=== PATIENT | male | born 1970 | race American Indian/Alaskan Native ===

== ENCOUNTER 2022-01-30 02:45 | Inpatient (IN) | payer SELFPAY ==
--- NOTE | 2022-01-30 03:00 | Emergency Department Report ---
ED Chest Pain HPI - General Chief Complaint: Chest Pain Stated Complaint: RT SIDE CHEST PAIN Time Seen by Provider: 01/30/22 02:54 Source: patient, EMS Mode of arrival: Ambulatory Limitations: No Limitations - History of Present Illness Initial Comments: 51-year-old male with a past medical history of COPD without home oxygen use presents to the hospital complaining of shortness of breath and chest pain since yesterday. Patient complains of right-sided chest pain described as something pulling. Pain is constant and worse with palpation. Patient also reports worsening shortness of breath not alleviated with home nebulizer treatment. Patient complains of coughing up bloody sputum without fever, calf tenderness, leg edema, history of PE/DVT. Patient does continue to smoke cigarettes. Patient is unvaccinated for COVID - Related Data Allergies Allergy/AdvReac Type Severity Reaction Status Date / Time No Known Allergies Allergy Unverified 01/30/22 03:19 Heart Score - HEART Score History: Slightly suspicious EKG: Normal Age: 45-65 Risk factors: 1-2 risk factors Troponin: < normal limit HEART Score: 2 - EKG Read Time Time EKG Completed: 03:05 EKG Read Time: 03:07 ED Review of Systems ROS: Stated complaint: RT SIDE CHEST PAIN Other details as noted in HPI Comment: All other systems reviewed and negative ED Physical Exam - General Limitations: No Limitations - Other Other exam information: General: No acute distress Head: Atraumatic Eyes: normal appearance ENT: Moist mucous membranes Neck: Normal appearance, no midline tenderness Chest: Clear to auscultation bilaterally, tachypnea, no rales or wheeze CV: Regular rate and rhythm Abdomen: Soft, normal bowel sounds, nontender, nondistended, no rebound or guarding Back: Normal inspection Extremity: Normal inspection, full range of motion, no calf tenderness or leg edema Neuro: Alert O x 3, no facial asymmetry, speech clear, no gross motor sensory deficit Psych: Appropriate behavior Skin: No rash ED Course Vital Signs 01/30/22 01/30/22 01/30/22 03:26 03:33 07:23 Temperature 99.3 F Pulse Rate 91 H Pulse Rate [ 88 Anterior Bilateral Throughout] Respiratory 20 Rate Respiratory 20 Rate [Anterior Bilateral Throughout] Blood Pressure Blood Pressure 122/71 [Left] O2 Sat by Pulse 94 97 Oximetry 01/30/22 01/30/22 01/30/22 07:31 07:45 08:01 Temperature Pulse Rate Pulse Rate [ Anterior Bilateral Throughout] Respiratory Rate Respiratory Rate [Anterior Bilateral Throughout] Blood Pressure 108/77 108/77 124/88 Blood Pressure [Left] O2 Sat by Pulse 96 97 95 Oximetry 01/30/22 01/30/22 01/30/22 08:15 08:31 08:45 Temperature Pulse Rate Pulse Rate [ Anterior Bilateral Throughout] Respiratory Rate Respiratory Rate [Anterior Bilateral Throughout] Blood Pressure 124/88 113/70 113/70 Blood Pressure [Left] O2 Sat by Pulse 98 100 92 Oximetry 01/30/22 01/30/22 01/30/22 09:01 09:15 09:31 Temperature Pulse Rate Pulse Rate [ Anterior Bilateral Throughout] Respiratory Rate Respiratory Rate [Anterior Bilateral Throughout] Blood Pressure 100/77 100/77 123/89 Blood Pressure [Left] O2 Sat by Pulse 95 96 95 Oximetry 01/30/22 01/30/22 01/30/22 09:45 10:01 10:15 Temperature Pulse Rate Pulse Rate [ Anterior Bilateral Throughout] Respiratory Rate Respiratory Rate [Anterior Bilateral Throughout] Blood Pressure 123/89 131/82 131/82 Blood Pressure [Left] O2 Sat by Pulse 96 98 97 Oximetry 01/30/22 01/30/22 01/30/22 10:31 10:45 11:01 Temperature Pulse Rate 88 89 Pulse Rate [ Anterior Bilateral Throughout] Respiratory 29 H 26 H Rate Respiratory Rate [Anterior Bilateral Throughout] Blood Pressure 121/63 121/63 117/82 Blood Pressure [Left] O2 Sat by Pulse 98 95 99 Oximetry 01/30/22 01/30/22 01/30/22 11:15 11:31 11:45 Temperature Pulse Rate 93 H 89 90 Pulse Rate [ Anterior Bilateral Throughout] Respiratory 17 28 H 30 H Rate Respiratory Rate [Anterior Bilateral Throughout] Blood Pressure 117/82 127/80 127/80 Blood Pressure [Left] O2 Sat by Pulse 97 97 98 Oximetry 01/30/22 01/30/22 01/30/22 12:01 12:15 12:31 Temperature Pulse Rate 93 H 93 H 91 H Pulse Rate [ Anterior Bilateral Throughout] Respiratory 15 36 H 24 Rate Respiratory Rate [Anterior Bilateral Throughout] Blood Pressure 127/80 127/80 123/73 Blood Pressure [Left] O2 Sat by Pulse 96 97 95 Oximetry 01/30/22 01/30/22 01/30/22 12:45 13:01 13:15 Temperature Pulse Rate 87 91 H 92 H Pulse Rate [ Anterior Bilateral Throughout] Respiratory 16 12 25 H Rate Respiratory Rate [Anterior Bilateral Throughout] Blood Pressure 123/73 114/78 114/78 Blood Pressure [Left] O2 Sat by Pulse 97 98 96 Oximetry 01/30/22 01/30/22 01/30/22 13:31 13:45 14:01 Temperature Pulse Rate 88 88 93 H Pulse Rate [ Anterior Bilateral Throughout] Respiratory 15 21 22 Rate Respiratory Rate [Anterior Bilateral Throughout] Blood Pressure 127/77 127/77 121/64 Blood Pressure [Left] O2 Sat by Pulse 97 97 96 Oximetry 01/30/22 01/30/22 01/30/22 14:15 14:31 14:45 Temperature Pulse Rate 91 H 90 90 Pulse Rate [ Anterior Bilateral Throughout] Respiratory 25 H 19 30 H Rate Respiratory Rate [Anterior Bilateral Throughout] Blood Pressure 121/64 111/74 111/74 Blood Pressure [Left] O2 Sat by Pulse 96 98 97 Oximetry 01/30/22 01/30/22 01/30/22 15:01 15:15 15:31 Temperature Pulse Rate 88 93 H 91 H Pulse Rate [ Anterior Bilateral Throughout] Respiratory 34 H 29 H 36 H Rate Respiratory Rate [Anterior Bilateral Throughout] Blood Pressure 124/75 124/75 127/79 Blood Pressure [Left] O2 Sat by Pulse 94 97 95 Oximetry 01/30/22 01/30/22 01/30/22 15:45 16:01 16:15 Temperature Pulse Rate 92 H 92 H 91 H Pulse Rate [ Anterior Bilateral Throughout] Respiratory 22 25 H 36 H Rate Respiratory Rate [Anterior Bilateral Throughout] Blood Pressure 127/79 123/77 123/77 Blood Pressure [Left] O2 Sat by Pulse 97 97 98 Oximetry 01/30/22 01/30/22 01/30/22 16:31 16:46 17:01 Temperature Pulse Rate 91 H 92 H 88 Pulse Rate [ Anterior Bilateral Throughout] Respiratory 14 20 18 Rate Respiratory Rate [Anterior Bilateral Throughout] Blood Pressure 129/82 129/82 Blood Pressure [Left] O2 Sat by Pulse 95 95 96 Oximetry 01/30/22 01/30/22 01/30/22 17:15 17:31 17:45 Temperature Pulse Rate 88 97 H 89 Pulse Rate [ Anterior Bilateral Throughout] Respiratory 21 26 H 19 Rate Respiratory Rate [Anterior Bilateral Throughout] Blood Pressure 129/82 123/72 123/72 Blood Pressure [Left] O2 Sat by Pulse 97 96 98 Oximetry 01/30/22 01/30/22 01/30/22 18:01 18:15 18:31 Temperature Pulse Rate 88 100 H 91 H Pulse Rate [ Anterior Bilateral Throughout] Respiratory 26 H 14 25 H Rate Respiratory Rate [Anterior Bilateral Throughout] Blood Pressure 108/76 108/76 122/68 Blood Pressure [Left] O2 Sat by Pulse 95 97 97 Oximetry 01/30/22 01/30/22 01/30/22 18:45 19:01 19:15 Temperature 98.6 F Pulse Rate 89 92 H 90 Pulse Rate [ Anterior Bilateral Throughout] Respiratory 27 H 20 26 H Rate Respiratory Rate [Anterior Bilateral Throughout] Blood Pressure 122/68 119/95 119/95 Blood Pressure [Left] O2 Sat by Pulse 95 95 97 Oximetry 01/30/22 01/30/22 01/30/22 19:31 19:45 20:01 Temperature Pulse Rate 90 92 H 93 H Pulse Rate [ Anterior Bilateral Throughout] Respiratory 17 17 21 Rate Respiratory Rate [Anterior Bilateral Throughout] Blood Pressure 116/71 116/71 111/78 Blood Pressure [Left] O2 Sat by Pulse 95 96 97 Oximetry 01/30/22 01/30/22 01/30/22 20:15 20:31 20:45 Temperature Pulse Rate 96 H 94 H 95 H Pulse Rate [ Anterior Bilateral Throughout] Respiratory 25 H 20 21 Rate Respiratory Rate [Anterior Bilateral Throughout] Blood Pressure 111/78 111/81 111/81 Blood Pressure [Left] O2 Sat by Pulse 92 97 96 Oximetry - Reevaluation(s) Reevaluation #1: 01/30/22 03:20 room air sat 90%, pt placed on 2L 02 and duo neb ordered while awaiting results - Consultations Consultation #1: 01/30/22 05:55 DR Richter (vascular surgeon) called, awaiting call back 01/30/22 06:15 Case was D/w Dr Richter, will consult MELVIN score - Melvin Score Age > 65: (0) No Aspirin use within the Past 7 Days: (0) No 3 or more CAD Risk Factors: (0) No 2 or more Angina events in past 24 hrs: (0) No Known CAD with more than 50% Stenosis: (0) No Elevated Cardiac Markers: (0) No ST Deviation Greater than 0.5mm: (0) No MELVIN Score: 0 ED Medical Decision Making - Lab Data Result diagrams: 01/30/22 03:24 01/30/22 03:24 Lab Results 01/30/22 01/30/22 01/30/22 Range/Units 03:24 03:24 03:24 WBC 11.1 H (4.5-11.0) K/mm3 RBC 4.96 (3.65-5.03) M/mm3 Hgb 14.6 (11.8-15.2) gm/dl Hct 44.6 (35.5-45.6) % MCV 90 (84-94) fl MCH 30 (28-32) pg MCHC 33 (32-34) % RDW 14.5 (13.2-15.2) % Plt Count 210 (140-440) K/mm3 Lymph % (Auto) 11.3 L (13.4-35.0) % [place] % (Auto) 9.7 H (0.0-7.3) % Eos % (Auto) 1.7 (0.0-4.3) % Baso % (Auto) 0.5 (0.0-1.8) % Lymph # (Auto) 1.3 (1.2-5.4) K/mm3 [place] # (Auto) 1.1 H (0.0-0.8) K/mm3 Eos # (Auto) 0.2 (0.0-0.4) K/mm3 Baso # (Auto) 0.1 (0.0-0.1) K/mm3 Seg Neutrophils % 76.8 H (40.0-70.0) % Seg Neutrophils # 8.5 H (1.8-7.7) K/mm3 PT 12.9 (12.2-14.9) Sec. INR 0.88 (0.87-1.13) APTT 26.1 (24.2-36.6) Sec. D-Dimer 2958.59 H (0-234) ng/mlDDU Sodium 139 (137-145) mmol/L Potassium 4.4 (3.6-5.0) mmol/L Chloride 102.0 (98-107) mmol/L Carbon Dioxide 25 (22-30) mmol/L Anion Gap 16 mmol/L BUN 10 (9-20) mg/dL Creatinine 0.8 (0.8-1.3) mg/dL Estimated GFR > 60 ml/min BUN/Creatinine Ratio 13 % Glucose 112 H (75-100) mg/dL Calcium 8.6 (8.4-10.2) mg/dL Total Bilirubin 0.20 (0.1-1.2) mg/dL AST 14 (5-40) units/L ALT 12 (7-56) units/L Alkaline Phosphatase 91 (35-129) units/L Troponin T < 0.010 (0.00-0.029) ng/mL NT-Pro-B Natriuret Pep 550.4 (0-900) pg/mL Total Protein 6.6 (6.3-8.2) g/dL Albumin 3.6 L (3.9-5) g/dL Albumin/Globulin Ratio 1.2 % - EKG Data -: EKG Interpreted by Tx EKG shows normal: sinus rhythm, ST-T waves (no stemi) Rate: normal - EKG Data When compared to previous EKG there are: previous EKG unavailable - Radiology Data Radiology results: report reviewed CHEST 1 VIEW INDICATION / CLINICAL INFORMATION: sob, cough, right sided cp. COMPARISON: None available. FINDINGS: SUPPORT DEVICES: None. HEART / MEDIASTINUM: No significant abnormality. LUNGS / PLEURA: Confluent airspace opacities overlying the right hemidiaphragm are compatible with infectious process. Lungs otherwise clear. BONES: No significant osseous abnormality. ADDITIONAL FINDINGS: No significant additional findings. IMPRESSION: 1. Infectious process right lung base is suggested. CTA CHEST WITH CONTRAST INDICATION / CLINICAL INFORMATION: hypoxia, infiltrate, elevated ddimer. TECHNIQUE: Axial CT images were obtained through the chest after injection of IV contrast. 3 plane MIP and/or 3D reconstructions were produced. All CT scans at this location are performed using CT dose reduction for ALARA by means of automated exposure control. COMPARISON: None available. FINDINGS: VASCULAR FINDINGS: PULMONARY ARTERY: Newly occlusive to occlusive pulmonary artery embolus is present within the bifurcation of the right main pulmonary artery with embolus extending within upper and lower lobe lobar branches as well as right middle lobe lobar branches. The right middle lobe branch embolus is occlusive. Additional segmental branch emboli are present within the left lower lobe.. THORACIC AORTA: No significant abnormality. CORONARY ARTERY CALCIFICATION: Present -- Mild. NONVASCULAR FINDINGS: LOWER NECK: Soft tissues and musculature of the lower neck demonstrate no significant abnormality. The thyroid demonstrates no significant abnormality. HEART: Mild prominence of the right ventricle is present. No reflux of contrast within the inferior vena cava. MEDIASTINUM / CARIDAD: No significant abnormality. ESOPHAGUS: No significant abnormality. LYMPH NODES: No adenopathy within the axilla, mediastinum, or caridad. LUNGS: Moderate paraseptal emphysema is present. Within the right middle and lower lobes areas of peripheral airspace attenuation groundglass attenuation present with superimposed subsegmental atelectasis of the right lower lobe. Differential considerations include infarction as well as infection. PLEURA: No pleural effusion. No pneumothorax. THORACIC SOFT TISSUES: No significant abnormality of the chest wall or upper thoracic musculature. BONES: No significant skeletal abnormalities. ADDITIONAL CHEST FINDINGS: None. UPPER ABDOMEN: No significant abnormality. IMPRESSION: 1. Extensive bilateral pulmonary artery emboli the largest vessel of involvement is bifurcation of the right main pulmonary artery. Occlusive thrombus extends within the right middle lobe lobar branch with additional nearly occlusive emboli within the right upper and right lower lobe lobar branches. Left lower lobe segmental branches have additional thrombus present. 2. Right ventricle is minimally enlarged, mild right ventricular strain is suggested. - Medical Decision Making 51-year-old male presents to the hospital right-sided chest pain, shortness of breath, hypoxia. X-ray reveals findings of a right-sided infiltrate. Patient treated for community-acquired pneumonia. He is unvaccinated for COVID with elevated D-dimer. No signs of severe sepsis or septic shock. O2 saturation improved with supplemental nasal cannula oxygen. CT angiogram shows extensive pulmonary emboli with possible right heart strain. Vascular surgery consult requested. Heparin drip initiated. patient will require admission to the hospital for further treatment. COVID test pending. DR Miner informed of admission Critical Care Time: Yes Critical care time in (mins) excluding proc time.: 40 Critical care attestation.: If time is entered above; I have spent that time in minutes in the direct care of this critically ill patient, excluding procedure time. Critical Care Time: 40 Minutes of critical care time excluding procedures were used in the care of the patient. I came immediately to the bedside upon patient's arrival. I obtained history from EMS at the bedside. I discussed treatment plan with the nursing team members. Patient required multiple interventions and reassessments. Spoke with hospitalist and consultants for collaborative care ED Disposition Clinical Impression: Acute respiratory failure with hypoxemia, Pneumonia, Pulmonary emboli Disposition: ADMITTED INPATIENT Is pt being admited?: Yes Condition: Stable Time of Disposition: 05:53 (DR Miner/hospitalist)
[2022-01-30] MEDS ORDERED: ONDANSETRON 4 MG/2 ML INJ IV ONE (03:19)
[2022-01-30] MEDS ORDERED: MORPHINE 4 MG/1 ML INJ IV ONE ×2 (03:19→04:45)
[2022-01-30] MEDS ORDERED: IPRATROPIUM/ALBUTEROL SULFATE 3 ML AMPUL.NEB IH ONE (03:20)
--- NOTE | 2022-01-30 03:29 | XRay Report ---
CHEST 1 VIEW INDICATION / CLINICAL INFORMATION: sob, cough, right sided cp. COMPARISON: None available. FINDINGS: SUPPORT DEVICES: None. HEART / MEDIASTINUM: No significant abnormality. LUNGS / PLEURA: Confluent airspace opacities overlying the right hemidiaphragm are compatible with in fectious process. Lungs otherwise clear. BONES: No significant osseous abnormality. ADDITIONAL FINDINGS: No significant additional findings. IMPRESSION: 1. Infectious process right lung base is suggested. Signer Name: Piero Bolton II, MD Signed: 01/30/2022 3:24 AM Workstation Name: [id number]
[2022-01-30] MEDS ORDERED: AZITHROMYCIN/NS 500 MG/250 ML 500 MG/250 ML BAG IV ONE (03:42)
[2022-01-30] MEDS ORDERED: cefTRIAXone/NS 2 GM/100 ML 2 GM/100 ML BAG IV ONE (03:42)
[2022-01-30 03:54] LABS: Basophils # (Auto) 0.1 K/mm3 (0.0-0.1); Basophils % (Auto) 0.5 % (0.0-1.8); Eosinophils # (Auto) 0.2 K/mm3 (0.0-0.4); Eosinophils % (Auto) 1.7 % (0.0-4.3); Hematocrit 44.6 % (35.5-45.6); Hemoglobin 14.6 gm/dl (11.8-15.2); Lymphocytes # (Auto) 1.3 K/mm3 (1.2-5.4); Lymphocytes % (Auto) 11.3 % (13.4-35.0); Mean Corpuscular HGB Conc 33 % (32-34); Mean Corpuscular Volume 90 fl (84-94); Monocytes # (Auto) 1.1 K/mm3 (0.0-0.8); Monocytes % (Auto) 9.7 % (0.0-7.3); Platelet Count 210 K/mm3 (140-440); Red Blood Count 4.96 M/mm3 (3.65-5.03); Red Cell Distribution Width 14.5 % (13.2-15.2)
[2022-01-30 03:58] LABS: Alanine Aminotransferase 12 units/L (7-56); Albumin 3.6 g/dL (3.9-5); BUN/Creatinine Ratio 13; Blood Urea Nitrogen 10 mg/dL (9-20); Calcium 8.6 mg/dL (8.4-10.2); Hemolysis Index 7
[2022-01-30 04:13] LABS: INR 0.88 (0.87-1.13)
[2022-01-30 04:14] LABS: Partial Thromboplastin Time 26.1 Sec. (24.2-36.6)
[2022-01-30] MEDS ORDERED: HEPARIN 10,000 UNITS/10 ML VIAL IV PRN (05:39)
[2022-01-30] MEDS ORDERED: HEPARIN 10,000 UNITS/10 ML VIAL IV ONE (05:39)
--- NOTE | 2022-01-30 05:48 | Cat Scan Report ---
CTA CHEST WITH CONTRAST INDICATION / CLINICAL INFORMATION: hypoxia, infiltrate, elevated ddimer. TECHNIQUE: Axial CT images were obtained through the chest after injection of IV contrast. 3 plane DE P and/or 3D reconstructions were produced. All CT scans at this location are performed using CT dose reduction for ALARA by means of automated exposure control. COMPARISON: None available. FINDINGS: VASCULAR FINDINGS: PULMONARY ARTERY: Newly occlusive to occlusive pulmonary artery embolus is present within the bifurca tion of the right main pulmonary artery with embolus extending within upper and lower lobe lobar bran ches as well as right middle lobe lobar branches. The right middle lobe branch embolus is occlusive. Additional segmental branch emboli are present within the left lower lobe.. THORACIC AORTA: No significant abnormality. CORONARY ARTERY CALCIFICATION: Present -- Mild. NONVASCULAR FINDINGS: LOWER NECK: Soft tissues and musculature of the lower neck demonstrate no significant abnormality. Th e thyroid demonstrates no significant abnormality. HEART: Mild prominence of the right ventricle is present. No reflux of contrast within the inferior v brijesh cava. MEDIASTINUM / CARIDAD: No significant abnormality. ESOPHAGUS: No significant abnormality. LYMPH NODES: No adenopathy within the axilla, mediastinum, or caridad. LUNGS: Moderate paraseptal emphysema is present. Within the right middle and lower lobes areas of per ipheral airspace attenuation groundglass attenuation present with superimposed subsegmental atelectas is of the right lower lobe. Differential considerations include infarction as well as infection. PLEURA: No pleural effusion. No pneumothorax. THORACIC SOFT TISSUES: No significant abnormality of the chest wall or upper thoracic musculature. BONES: No significant skeletal abnormalities. ADDITIONAL CHEST FINDINGS: None. UPPER ABDOMEN: No significant abnormality. IMPRESSION: 1. Extensive bilateral pulmonary artery emboli the largest vessel of involvement is bifurcation of th e right main pulmonary artery. Occlusive thrombus extends within the right middle lobe lobar branch w ith additional nearly occlusive emboli within the right upper and right lower lobe lobar branches. Le ft lower lobe segmental branches have additional thrombus present. 2. Right ventricle is minimally enlarged, mild right ventricular strain is suggested. CRITICAL RESULT Time of Discovery (ALUMNI RELATIONS COORDINATOR/CDT): 0430 hours Time of Communication (ALUMNI RELATIONS COORDINATOR/CDT): 0436 hours Licensed Practitioner Receiving Report: Dr. Olmedo Read-Back Performed: Yes. Signer Name: Piero Bolton II, MD Signed: 01/30/2022 5:44 AM Workstation Name: [id number]
[2022-01-30] MEDS ORDERED: fentaNYL 100 MCG/2 ML INJ IV ONE ×3 (07:50→18:30)
--- NOTE | 2022-01-30 07:55 | Event Note ---
Date: 01/30/22 Pt is to be held in the ED due to the hospitalized been caped/maxed out on their patient load at this point. I received a call from one of the hospitalist that no new admission will be accepted by them until around 11 AM when the morning physician arrived. So this patient will continued to be managed in the ED until rooms become available. I was asked by the bedside nurse for pain medication and fentanyl 50 mcg given considering very soft systolic blood pressure.
[2022-01-30] MEDS: HEPARIN/ 0.45% NACL DRIP 25,000 UNIT/500 ML BAG IV SCH (07:56)
--- NOTE | 2022-01-30 09:40 | Consultation ---
History of Present Illness - Reason for Consult Consult date: 01/30/22 Pulmonary embolism Requesting physician: KENDALL RG - History of Present Illness 51-year-old male with a past medical history of COPD without home oxygen use presents to the hospital complaining of shortness of breath and chest pain since yesterday. Patient complains of right-sided chest pain described as something pulling. Pain is constant and worse with palpation. Patient also reports wo rsening shortness of breath not alleviated with home nebulizer treatment. Patient complains of coughing up bloody sputum without fever, calf tenderness, leg edema, history of PE/DVT. Patient does continue to smoke cigarettes. Patient is unvaccinated for COVID. Vascular consulted for pulmonary embolism. Pulmonary artery CT angiogram demonstrates right distal main pulmonary embolism with extension into the right lobar and segmental branches. In addition there are segmental pulmonary emboli in the left lower lobe. Right ventricle the left ventricle ratio is 1.44. BNP is mildly increased. Troponin negative. There are multiple wedge-shaped opacities in the right lung which may represent infarction or infection. COVID being ruled out. Patient is very symptomatic with significant shortness of breath on 5 L of nasal cannula with near constant right chest pain. ROS: Stated complaint: RT SIDE CHEST PAIN Other details as noted in HPI Comment: All other systems reviewed and negative Past History Past Medical History: COPD Past Surgical History: No surgical history Social history: smoking Family history: no significant family history Medications and Allergies Allergies Allergy/AdvReac Type Severity Reaction Status Date / Time No Known Allergies Allergy Unverified 01/30/22 03:19 Active Meds: Active Medications Heparin Sodium (Porcine) (Heparin 10,000 Units/10 Ml Vial) 2,900 unit 40 unit/kg (2900 unit) IV Q6H PRN PRN Reason: Anti-Xa Assay < 0.1 units/ml Heparin Sodium/Sodium Chloride (Heparin/ 0.45% Nacl-25,000 Unit/500 Ml) 25,000 unit in 500 mls @ 21 mls/hr IV TITR ERICK; Protocol Last Admin: 01/30/22 07:56 Dose: 1,050 units/hr, 21 mls/hr Exam - Constitutional Vitals: Temp Pulse Resp BP Pulse Ox 99.3 F 88 20 108/77 97 01/30/22 03:26 01/30/22 03:33 01/30/22 03:33 01/30/22 07:45 01/30/22 07:45 General appearance: Present: mild distress (Shortness of breath at rest) - EENT Eyes: Present: EOM intact ENT: hearing intact - Respiratory Respiratory effort: labored (Tachypnea) - Cardiovascular Rhythm: regular - Extremities Extremities: normal temperature, normal color - Abdominal General gastrointestinal: Present: soft, non-tender - Psychiatric Psychiatric: appropriate mood/affect, cooperative Results - Labs CBC & Chem 7: 01/30/22 03:24 01/30/22 03:24 Labs: Abnormal lab results 01/30/22 01/30/22 01/30/22 Range/Units 03:24 03:24 03:24 WBC 11.1 H (4.5-11.0) K/mm3 Lymph % (Auto) 11.3 L (13.4-35.0) % [place] % (Auto) 9.7 H (0.0-7.3) % [place] # (Auto) 1.1 H (0.0-0.8) K/mm3 Seg Neutrophils % 76.8 H (40.0-70.0) % Seg Neutrophils # 8.5 H (1.8-7.7) K/mm3 D-Dimer 2958.59 H (0-234) ng/mlDDU Glucose 112 H (75-100) mg/dL Albumin 3.6 L (3.9-5) g/dL Assessment and Plan 51-year-old male with COPD who was admitted for right chest pain and shortness of breath with submassive pulmonary embolism. Patient has submassive pulmonary embolism with intermediate high risk stratification. Discussed thrombectomy with patient and thrombolysis. Unfortunately, the patient cannot lay down flat due to right-sided chest pain. This was discussed with patient and he is adamant that he cannot lay flat for procedure. Therefore, he could not undergo thrombolysis or thrombectomy at this time. Once chest pain has improved enough so that the patient can lay flat for prolonged period, then he can be reconsidered for endovascular therapy. This was discussed in depth with the patient who understands. Risks, benefits, and alternatives were discussed with the patient. Continue heparin drip for now.
--- NOTE | 2022-01-30 10:07 | Electrocardiograph Report ---
[facility] Test Date: 2022-01-30 Test Time: 03:05:51 Pat Name: KAREN LAL Department: Room: Gender: M Administrative Services Assistant: CHERYL : 1970 Requested By: KENDALL RG Order Number: [id number] Reading MD: Simone Robertson Measurements Intervals [place] Rate: 87 P: 50 VT: 145 QRS: -29 QRSD: 90 T: 23 QT: 388 QTc: 468 Interpretive Statements Sinus rhythm Probable left atrial enlargement Probable left ventricular hypertrophy Inferior infarct, old No previous ECG available for comparison Electronically Signed On 01-30-2022 10:07:03 EDT by Simone Robertson
[2022-01-30 11:02] LABS: Amphetamine Screen,Urine Negative; Benzodiazepines Screen,Urine Negative; Methadone Screen,Urine Negative
[2022-01-30 11:33] LABS: Cannabinoid Screen,Urine Positive; Cocaine Screen,Urine Positive; Opiate Screen,Urine Positive
[2022-01-30] MEDS ORDERED: ONDANSETRON 4 MG/2 ML INJ IV PRN (12:52)
[2022-01-30] MEDS ORDERED: ACETAMINOPHEN 325 MG TAB PO PRN (12:52)
[2022-01-30] MEDS ORDERED: oxyCODONE /ACETAMINOPHEN 5-325MG TAB PO PRN (12:52)
--- NOTE | 2022-01-30 13:09 | History and Physical Report ---
History of Present Illness History of present illness: 51-year-old gentleman with past medical history of COPD not on home O2 presenting to our facility with complaint of right-sided chest pain and shortness of breath. Symptomology started approximately 3 days ago with right- sided chest pain which he rates as a 10 out of 10 and progressed to severe shortness of breath. Patient denied any fevers or chills. He is not vaccinated for COVID. He denied any recent travel, prolonged immobilization, surgeries, personal history of cancers. He denied any prior history of DVT or PE. He denies any prior history of blood clotting disorders. Initial CTA chest demonstrates submassive right-sided pulmonary embolism. Patient very uncomfortable on my encounter. Requiring 4 - 5 L/min nasal cannula oxygen on my encounter. Vital signs otherwise stable. 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 , lives with Could not remember PCP name Past History Past Medical History: COPD Past Surgical History: No surgical history Social history: smoking Family history: no significant family history Medications and Allergies Allergies Allergy/AdvReac Type Severity Reaction Status Date / Time No Known Allergies Allergy Unverified 01/30/22 03:19 Active Meds: Active Medications Acetaminophen (Acetaminophen 325 Mg Tab) 650 mg PO Q4H PRN PRN Reason: Pain MILD(1-3)/Fever >100.5/GALAVIZ Heparin Sodium (Porcine) (Heparin 10,000 Units/10 Ml Vial) 2,900 unit 40 unit/kg (2900 unit) IV Q6H PRN PRN Reason: Anti-Xa Assay < 0.1 units/ml Hydromorphone HCl (Hydromorphone 0.5 Mg/0.5 Ml Inj) 0.5 mg IV Q3H PRN PRN Reason: Pain , Severe (7-10) Heparin Sodium/Sodium Chloride (Heparin/ 0.45% Nacl-25,000 Unit/500 Ml) 25,000 unit in 500 mls @ 21 mls/hr IV TITR ERICK; Protocol Last Admin: 01/30/22 07:56 Dose: 1,050 units/hr, 21 mls/hr Ondansetron HCl (Ondansetron 4 Mg/2 Ml Inj) 4 mg IV Q8H PRN PRN Reason: Nausea And Vomiting Oxycodone/Acetaminophen (Oxycodone /Acetaminophen 5-325mg Tab) 1 tab PO Q6H PRN PRN Reason: Pain, Moderate (4-6) Sodium Chloride (Sodium Chloride 0.9% 10 Ml Flush Syringe) 10 ml IV BID ERICK Sodium Chloride (Sodium Chloride 0.9% 10 Ml Flush Syringe) 10 ml IV PRN PRN PRN Reason: LINE FLUSH Exam - Physical Exam Narrative exam: Physical Exam: VITAL SIGNS: Reviewed. GENERAL: The patient appears normally developed, Vital signs as documented. On 4 to 5 L/min nasal cannula. Mild distress HEAD: No signs of head trauma. EYES: Pupils are equal. Extraocular motions intact. EARS: Hearing grossly intact. MOUTH: Oropharynx is normal. NECK: No adenopathy, no JVD. CHEST: Chest with clear breath sounds bilaterally. No wheezes, rales, or rhonchi. CARDIAC: Regular rate and rhythm. S1 and S2, without murmurs, gallops, or rubs. VASCULAR: No Edema. Peripheral pulses normal and equal in all extremities. ABDOMEN: Soft, non tender and non distended. No rebound or guarding, and no masses palpated. Bowel Sounds normal. MUSCULOSKELETAL: Good range of motion of all major joints. Extremities without clubbing, cyanosis or edema. NEUROLOGIC EXAM: Alert and oriented x 4. no focal sensory or strength deficits. PSYCHIATRIC: Mood normal. SKIN: detail exam as documented in skin assessment - Constitutional Vitals: Temp Pulse Resp BP Pulse Ox 99.3 F 91 H 24 123/73 95 01/30/22 03:26 01/30/22 12:31 01/30/22 12:31 01/30/22 12:31 01/30/22 12:31 HEART Score - HEART Score Troponin: Troponin T < 0.010 ng/mL (0.00-0.029) 01/30/22 03:24 Results - Labs CBC & Chem 7: 01/30/22 03:24 01/30/22 03:24 Labs: Laboratory Last Values WBC 11.1 K/mm3 (4.5-11.0) H 01/30/22 03:24 RBC 4.96 M/mm3 (3.65-5.03) 01/30/22 03:24 Hgb 14.6 gm/dl (11.8-15.2) 01/30/22 03:24 Hct 44.6 % (35.5-45.6) 01/30/22 03:24 MCV 90 fl (84-94) 01/30/22 03:24 MCH 30 pg (28-32) 01/30/22 03:24 MCHC 33 % (32-34) 01/30/22 03:24 RDW 14.5 % (13.2-15.2) 01/30/22 03:24 Plt Count 210 K/mm3 (140-440) 01/30/22 03:24 Lymph % (Auto) 11.3 % (13.4-35.0) L 01/30/22 03:24 [place] % (Auto) 9.7 % (0.0-7.3) H 01/30/22 03:24 Eos % (Auto) 1.7 % (0.0-4.3) 01/30/22 03:24 Baso % (Auto) 0.5 % (0.0-1.8) 01/30/22 03:24 Lymph # (Auto) 1.3 K/mm3 (1.2-5.4) 01/30/22 03:24 [place] # (Auto) 1.1 K/mm3 (0.0-0.8) H 01/30/22 03:24 Eos # (Auto) 0.2 K/mm3 (0.0-0.4) 01/30/22 03:24 Baso # (Auto) 0.1 K/mm3 (0.0-0.1) 01/30/22 03:24 Seg Neutrophils % 76.8 % (40.0-70.0) H 01/30/22 03:24 Seg Neutrophils # 8.5 K/mm3 (1.8-7.7) H 01/30/22 03:24 PT 12.9 Sec. (12.2-14.9) 01/30/22 03:24 INR 0.88 (0.87-1.13) 01/30/22 03:24 APTT 26.1 Sec. (24.2-36.6) 01/30/22 03:24 D-Dimer 2958.59 ng/mlDDU (0-234) H 01/30/22 03:24 Sodium 139 mmol/L (137-145) 01/30/22 03:24 Potassium 4.4 mmol/L (3.6-5.0) 01/30/22 03:24 Chloride 102.0 mmol/L (98-107) 01/30/22 03:24 Carbon Dioxide 25 mmol/L (22-30) 01/30/22 03:24 Anion Gap 16 mmol/L 01/30/22 03:24 BUN 10 mg/dL (9-20) 01/30/22 03:24 Creatinine 0.8 mg/dL (0.8-1.3) 01/30/22 03:24 Estimated GFR > 60 ml/min 01/30/22 03:24 BUN/Creatinine Ratio 13 % 01/30/22 03:24 Glucose 112 mg/dL (75-100) H 01/30/22 03:24 Calcium 8.6 mg/dL (8.4-10.2) 01/30/22 03:24 Total Bilirubin 0.20 mg/dL (0.1-1.2) 01/30/22 03:24 AST 14 units/L (5-40) 01/30/22 03:24 ALT 12 units/L (7-56) 01/30/22 03:24 Alkaline Phosphatase 91 units/L (35-129) 01/30/22 03:24 Troponin T < 0.010 ng/mL (0.00-0.029) 01/30/22 03:24 NT-Pro-B Natriuret Pep 550.4 pg/mL (0-900) 01/30/22 03:24 Total Protein 6.6 g/dL (6.3-8.2) 01/30/22 03:24 Albumin 3.6 g/dL (3.9-5) L 01/30/22 03:24 Albumin/Globulin Ratio 1.2 % 01/30/22 03:24 Urine Opiates Screen Positive 01/30/22 Unknown Urine Methadone Screen Negative 01/30/22 Unknown Ur Barbiturates Screen Negative 01/30/22 Unknown Ur Phencyclidine Scrn Negative 01/30/22 Unknown Ur Amphetamines Screen Negative 01/30/22 Unknown U Benzodiazepines Scrn Negative 01/30/22 Unknown Urine Cocaine Screen Positive 01/30/22 Unknown U Marijuana (THC) Screen Positive 01/30/22 Unknown Drugs of Abuse Note Disclamer 01/30/22 Unknown SARS-CoV-2 (PCR) Negative (Negative) 01/30/22 09:33 Microbiology: Microbiology 01/30/22 03:42 Peripheral/Venous Blood Culture - Preliminary Culture in Progress 01/30/22 03:35 Peripheral/Venous Blood Culture - Preliminary Culture in Progress Assessment and Plan Assessment and plan: #Acute hypoxic respiratory failure -Hypoxia secondary to PE, unprovoked possibly. - covid 19 pcr pending, unvaccinated. -Chest x-ray suggestive of infectious etiology per radiology read. However suspect this is a wedge infarct CTA chest extensive pulmonary emboli the largest involvement being the bifurcation of the right main pulmonary artery. Occlusive thrombus extending in the right middle lobe with additional nearly occlusive emboli in the right upper and right lower lobe lobar branches. Left lower lobe segmental branches with thrombi present. Right ventricular mildly enlarged suggestive of right ventricular strain. - RV/LV ratio: 1.44. - ECHO ordered Supplemental oxygen currently on 4 to 5 L/min nasal cannula IR consulted for evaluation, not a current candidate for thrombectomy due to patient not able to lay flat heparin gtt. #Submassive pulmonary embolism -CTA findings as above -Per vascular, not a current candidate for EKOS/thrombectomy due to inability to lay flat Pain control for chest pain #Pulmonary infarction -CTA chest consistent with rt lower lobe infarction -pleuritic chest pain likely resulting from infarct and multiple occlusive thrombi specifically in territory of RML/RLL - pain control IV/PO - anticoagulation as above. #History of chronic obstructive pulmonary disease - does not utilize home O2. - duonebs prn. #Polysubstance abuse -UDS positive for cocaine, opiates, THC - behavioral health counseling administered which included education on benefits of drug cessation as well as options for quitting. +15 min. #Cocaine abuse #THC abuse #Opiate abuse #Advance care planning Disease education conducted, care plan discussed, diagnoses discussed, prognosis discussed, patient is full code, patient acknowledges understanding and agree with care plan, +30 minutes. Dispo: Tele bed for now. if condition worsens, may transfer to step down unit/CCU as deemed appropriate. DVT ppx: therapeutic ac.
[2022-01-30] MEDS ORDERED: IPRATROPIUM 0.02% NEBU 2.5 ML IH PRN (13:31)
[2022-01-30] MEDS ORDERED: ALBUTEROL 2.5 MG/3 ML NEBU IH PRN (13:31)
[2022-01-30] MEDS: HYDROmorphone 0.5 MG/0.5 ML INJ IV PRN ×3 (13:41→22:57)
[2022-01-30] MEDS ORDERED: NALOXONE 0.4 MG/1 ML INJ IV PRN (15:28)
[2022-01-30] MEDS ORDERED: MORPHINE 2 MG/1 ML INJ IV PRN (17:44)
[2022-01-31 05:23] LABS: Basophils % (Auto) 0.3 % (0.0-1.8); Eosinophils % (Auto) 0.1 % (0.0-4.3); Hematocrit 41.1 % (35.5-45.6); Hemoglobin 13.3 gm/dl (11.8-15.2); Lymphocytes # (Auto) 1.2 K/mm3 (1.2-5.4); Lymphocytes % (Auto) 8.8 % (13.4-35.0); Mean Corpuscular HGB Conc 32 % (32-34); Mean Corpuscular Volume 90 fl (84-94); Monocytes # (Auto) 1.5 K/mm3 (0.0-0.8); Monocytes % (Auto) 11.1 % (0.0-7.3); Platelet Count 192 K/mm3 (140-440); Red Blood Count 4.55 M/mm3 (3.65-5.03); Red Cell Distribution Width 14.6 % (13.2-15.2)
[2022-01-31 05:37] LABS: Alanine Aminotransferase 11 units/L (7-56); Albumin 3.2 g/dL (3.9-5); Blood Urea Nitrogen 7 mg/dL (9-20); Calcium 8.7 mg/dL (8.4-10.2); Hemolysis Index 7
[2022-01-31] MEDS: ACETAMINOPHEN 325 MG TAB PO PRN ×2 (05:58→13:42)
[2022-01-31 06:08] LABS: BUN/Creatinine Ratio 12
[2022-01-31] MEDS: HEPARIN/ 0.45% NACL DRIP 25,000 UNIT/500 ML BAG IV SCH (07:36)
--- NOTE | 2022-01-31 08:44 | Progress Note ---
Assessment and Plan Assessment and plan: History of present illness: 51-year-old gentleman with past medical history of COPD not on home O2 pres enting to our facility with complaint of right-sided chest pain and shortness of breath. Symptomology started approximately 3 days ago with right-sided chest pain which he rates as a 10 out of 10 and progressed to severe shortness of breath. Patient denied any fevers or chills. He is not vaccinated for COVID. He denied any recent travel, prolonged immobilization, surgeries, personal history of cancers. He denied any prior history of DVT or PE. He denies any prior history of blood clotting disorders. Initial CTA chest demonstrates submassive right-sided pulmonary embolism. Patient very uncomfortable on my encounter. Requiring 4 - 5 L/min nasal cannula oxygen on my encounter. Vital signs otherwise stable. Hospital Course: 01/31: Continue anticoagulation with heparin. Pain improved, respiratory symptoms have improved. Currently on 2L satting 92%. Currently no plan for thrombectomy/thrombolysis. If this continues to be the case, will likely d/c on anticoagulation +/- home O2. ECHO ordered shows mildly decreased LVEF. Suspect non-schemic cardiomyopathy given cocaine abuse. Will consult cardiology for input. Assessment and Plan: #Acute hypoxic respiratory failure -Hypoxia secondary to PE, unprovoked possibly. - covid 19 pcr pending, unvaccinated. -Chest x-ray suggestive of infectious etiology per radiology read. However suspect this is a wedge infarct CTA chest extensive pulmonary emboli the largest involvement being the bifurcation of the right main pulmonary artery. Occlusive thrombus extending in the right middle lobe with additional nearly occlusive emboli in the right upper and right lower lobe lobar branches. Left lower lobe segmental branches with thrombi present. Right ventricular mildly enlarged suggestive of right ventricular strain. - RV/LV ratio: 1.44. - ECHO ordered Supplemental oxygen currently on 4 to 5 L/min nasal cannula IR consulted for evaluation, not a current candidate for thrombectomy due to patient not able to lay flat heparin gtt. #Submassive pulmonary embolism -CTA findings as above -Per vascular, not a current candidate for EKOS/thrombectomy due to inability to lay flat Pain control for chest pain #Pulmonary infarction -CTA chest consistent with rt lower lobe infarction -pleuritic chest pain likely resulting from infarct and multiple occlusive thrombi specifically in territory of RML/RLL - pain control IV/PO - anticoagulation as above. #HFrEF - newly dx HFrEF, EF 35-40% on echo this admission, possibly nonischemic CMP from hx of cocaine abuse. - no prior hx per patient hx. - does not appears to be acutely in exacerbation - consult cardiology. #History of chronic obstructive pulmonary disease - does not utilize home O2. - duonebs prn. #Polysubstance abuse -UDS positive for cocaine, opiates, THC - behavioral health counseling administered which included education on benefits of drug cessation as well as options for quitting. +15 min. #Cocaine abuse #THC abuse #Opiate abuse #Advance care planning Disease education conducted, care plan discussed, diagnoses discussed, prognosis discussed, patient is full code, patient acknowledges understanding and agree with care plan, +30 minutes. DVT ppx: therapeutic ac. History Interval history: Pain symptoms have improved, however right sided chest pain still persisting. Currently resting comfortably on bedside encounter. Hospitalist Physical - Physical exam Narrative exam: Physical Exam: VITAL SIGNS: Reviewed. GENERAL: The patient appears normally developed, Vital signs as documented. On 4 to 5 L/min nasal cannula. Mild distress HEAD: No signs of head trauma. EYES: Pupils are equal. Extraocular motions intact. EARS: Hearing grossly intact. MOUTH: Oropharynx is normal. NECK: No adenopathy, no JVD. CHEST: Chest with clear breath sounds bilaterally. No wheezes, rales, or rhonchi. CARDIAC: Regular rate and rhythm. S1 and S2, without murmurs, gallops, or rubs. VASCULAR: No Edema. Peripheral pulses normal and equal in all extremities. ABDOMEN: Soft, non tender and non distended. No rebound or guarding, and no masses palpated. Bowel Sounds normal. MUSCULOSKELETAL: Good range of motion of all major joints. Extremities without clubbing, cyanosis or edema. NEUROLOGIC EXAM: Alert and oriented x 4. no focal sensory or strength deficits. PSYCHIATRIC: Mood normal. SKIN: detail exam as documented in skin assessment - Constitutional Vitals: Temp Pulse Resp BP Pulse Ox 102.0 F H 91 H 17 131/76 92 01/31/22 05:08 01/31/22 05:08 01/31/22 05:08 01/31/22 05:08 01/31/22 05:08 General appearance: Present: mild distress (Shortness of breath at rest) HEART Score - HEART Score EKG: Normal Age: 45-65 Risk factors: 1-2 risk factors Troponin: Troponin T < 0.010 ng/mL (0.00-0.029) 01/30/22 03:24 Troponin: < normal limit Results - Labs CBC & Chem 7: 01/31/22 04:48 01/31/22 04:48 Labs: Laboratory Last Values WBC 13.4 K/mm3 (4.5-11.0) H 01/31/22 04:48 RBC 4.55 M/mm3 (3.65-5.03) 01/31/22 04:48 Hgb 13.3 gm/dl (11.8-15.2) 01/31/22 04:48 Hct 41.1 % (35.5-45.6) 01/31/22 04:48 MCV 90 fl (84-94) 01/31/22 04:48 MCH 29 pg (28-32) 01/31/22 04:48 MCHC 32 % (32-34) 01/31/22 04:48 RDW 14.6 % (13.2-15.2) 01/31/22 04:48 Plt Count 192 K/mm3 (140-440) 01/31/22 04:48 Lymph % (Auto) 8.8 % (13.4-35.0) L 01/31/22 04:48 [place] % (Auto) 11.1 % (0.0-7.3) H 01/31/22 04:48 Eos % (Auto) 0.1 % (0.0-4.3) 01/31/22 04:48 Baso % (Auto) 0.3 % (0.0-1.8) 01/31/22 04:48 Lymph # (Auto) 1.2 K/mm3 (1.2-5.4) 01/31/22 04:48 [place] # (Auto) 1.5 K/mm3 (0.0-0.8) H 01/31/22 04:48 Eos # (Auto) 0.0 K/mm3 (0.0-0.4) 01/31/22 04:48 Baso # (Auto) 0.0 K/mm3 (0.0-0.1) 01/31/22 04:48 Seg Neutrophils % 79.7 % (40.0-70.0) H 01/31/22 04:48 Seg Neutrophils # 10.7 K/mm3 (1.8-7.7) H 01/31/22 04:48 PT 12.9 Sec. (12.2-14.9) 01/30/22 03:24 INR 0.88 (0.87-1.13) 01/30/22 03:24 APTT 26.1 Sec. (24.2-36.6) 01/30/22 03:24 D-Dimer 2958.59 ng/mlDDU (0-234) H 01/30/22 03:24 Heparin Anti-Xa Level 0.42 U.I./ml (0.3-0.7) 01/30/22 14:47 Sodium 132 mmol/L (137-145) L D 01/31/22 04:48 Potassium 4.3 mmol/L (3.6-5.0) 01/31/22 04:48 Chloride 98.6 mmol/L (98-107) 01/31/22 04:48 Carbon Dioxide 23 mmol/L (22-30) 01/31/22 04:48 Anion Gap 15 mmol/L 01/31/22 04:48 BUN 7 mg/dL (9-20) L 01/31/22 04:48 Creatinine 0.6 mg/dL (0.8-1.3) L 01/31/22 04:48 Estimated GFR > 60 ml/min 01/31/22 04:48 BUN/Creatinine Ratio 12 % 01/31/22 04:48 Glucose 122 mg/dL (75-100) H 01/31/22 04:48 Calcium 8.7 mg/dL (8.4-10.2) 01/31/22 04:48 Total Bilirubin 0.60 mg/dL (0.1-1.2) 01/31/22 04:48 AST 12 units/L (5-40) 01/31/22 04:48 ALT 11 units/L (7-56) 01/31/22 04:48 Alkaline Phosphatase 70 units/L (35-129) 01/31/22 04:48 Troponin T < 0.010 ng/mL (0.00-0.029) 01/30/22 03:24 NT-Pro-B Natriuret Pep 550.4 pg/mL (0-900) 01/30/22 03:24 Total Protein 6.4 g/dL (6.3-8.2) 01/31/22 04:48 Albumin 3.2 g/dL (3.9-5) L 01/31/22 04:48 Albumin/Globulin Ratio 1.0 % 01/31/22 04:48 Urine Opiates Screen Positive 01/30/22 Unknown Urine Methadone Screen Negative 01/30/22 Unknown Ur Barbiturates Screen Negative 01/30/22 Unknown Ur Phencyclidine Scrn Negative 01/30/22 Unknown Ur Amphetamines Screen Negative 01/30/22 Unknown U Benzodiazepines Scrn Negative 01/30/22 Unknown Urine Cocaine Screen Positive 01/30/22 Unknown U Marijuana (THC) Screen Positive 01/30/22 Unknown Drugs of Abuse Note Disclamer 01/30/22 Unknown SARS-CoV-2 (PCR) Negative (Negative) 01/30/22 09:33 Microbiology: Microbiology 01/30/22 03:42 Peripheral/Venous Blood Culture - Preliminary NO GROWTH AFTER 24 HOURS 01/30/22 03:35 Peripheral/Venous Blood Culture - Preliminary NO GROWTH AFTER 24 HOURS [place]/IV: Voiding Method Urinal Active Medications - Current Medications Current Medications: Generic Name Dose Route Start Last Admin Trade Name Freq PRN Reason Stop Dose Admin Acetaminophen 650 mg 01/30/22 17:44 01/31/22 05:58 Acetaminophen 325 Mg Tab PO 650 mg Q4H PRN Administration Pain MILD(1-3)/Fever >100.5/GALAVIZ Albuterol 2.5 mg 01/30/22 13:31 Albuterol 2.5 Mg/3 Ml Nebu IH Q4HRT PRN Shortness Of Breath Heparin Sodium (Porcine) 2,900 unit 01/30/22 05:39 Heparin 10,000 Units/10 Ml Vial 40 unit/kg (2900 unit) IV Q6H PRN Anti-Xa Assay < 0.1 units/ml Hydromorphone HCl 0.5 mg 01/30/22 17:44 01/30/22 22:57 Hydromorphone 0.5 Mg/0.5 Ml Inj IV 0.5 mg Q3H PRN Administration Pain , Severe (7-10) Heparin Sodium/Sodium Chloride 25,000 unit in 500 mls @ 21 mls/hr 01/30/22 06:00 01/31/22 07:36 Heparin/ 0.45% Nacl-25,000 Unit/500 Ml IV 1,050 units/hr TITR ERICK 21 mls/hr Administration Protocol 1,050 UNITS/HR Ipratropium [place] 0.5 mg 01/30/22 13:31 Ipratropium 0.02% Nebu 2.5 Ml IH Q4HRT PRN Shortness Of Breath Morphine Sulfate 2 mg 01/30/22 17:44 Morphine 2 Mg/1 Ml Inj IV Q4H PRN Pain, Moderate (4-6) Naloxone HCl 0.1 mg 01/30/22 15:28 Naloxone 0.4 Mg/1 Ml Inj IV Q2MIN PRN Res Rate </= 8 or 02 SAT < 92% Ondansetron HCl 4 mg 01/30/22 12:52 Ondansetron 4 Mg/2 Ml Inj IV Q8H PRN Nausea And Vomiting Sodium Chloride 10 ml 01/30/22 22:00 01/30/22 22:50 Sodium Chloride 0.9% 10 Ml Flush Syringe IV 10 ml BID ERICK Administration Sodium Chloride 10 ml 01/30/22 17:44 Sodium Chloride 0.9% 10 Ml Flush Syringe IV PRN PRN LINE FLUSH
--- NOTE | 2022-01-31 09:07 | Electrocardiograph Report ---
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
[2022-01-31] MEDS: HYDROmorphone 0.5 MG/0.5 ML INJ IV PRN ×4 (09:37→23:33)
--- NOTE | 2022-01-31 16:25 | Consultation ---
History of Present Illness Consult date: 01/31/22 Requesting physician: LEXI ALMEIDA Consult reason: congestive heart failure History of present illness: Patient is a 51-year-old male with a past medical history of COPD who presented to the ED with a complaint of and shortness of breath x2 to 3-month. Patient reports that over the last 2 to 3 days he has significant worsening of his shortness of breath and developed right-sided chest pain. Patient describes chest pain as a sharp throbbing pain that radiates to right upper extremity. He also states the pain is worse with deep breathing and lying flat. Patient denies any recent travel, prolonged immobilization, or prior history of DVT/PE. Of note, CT chest shows submassive right-sided PE. Furthermore echocardiogram showed EF of 35 to 40%. Patient denies any palpitations, bilateral lower extr emity edema, lightheadedness, diaphoresis, PND. Patient is previously unknown to our practice. Cardiology is consulted for heart failure. Past History Past Medical History: COPD Past Surgical History: No surgical history Social history: smoking Family history: CAD, cancer (Lung cancer) Medications and Allergies Allergies Allergy/AdvReac Type Severity Reaction Status Date / Time No Known Allergies Allergy Unverified 01/30/22 03:19 Home Medications Medication Instructions Recorded Confirmed Last Taken Type No Known Home Medications [No 01/31/22 01/31/22 Unknown History Reported Home Medications] Active Meds: Active Medications Acetaminophen (Acetaminophen 325 Mg Tab) 650 mg PO Q4H PRN PRN Reason: Pain MILD(1-3)/Fever >100.5/GALAVIZ Last Admin: 01/31/22 13:42 Dose: 650 mg Albuterol (Albuterol 2.5 Mg/3 Ml Nebu) 2.5 mg IH Q4HRT PRN PRN Reason: Shortness Of Breath Heparin Sodium (Porcine) (Heparin 10,000 Units/10 Ml Vial) 2,900 unit 40 unit/kg (2900 unit) IV Q6H PRN PRN Reason: Anti-Xa Assay < 0.1 units/ml Hydromorphone HCl (Hydromorphone 0.5 Mg/0.5 Ml Inj) 0.5 mg IV Q3H PRN PRN Reason: Pain , Severe (7-10) Last Admin: 01/31/22 13:42 Dose: 0.5 mg Heparin Sodium/Sodium Chloride (Heparin/ 0.45% Nacl-25,000 Unit/500 Ml) 25,000 unit in 500 mls @ 21 mls/hr IV TITR ERICK; Protocol Last Titration: 01/31/22 09:36 Dose: 1,150 units/hr, 23 mls/hr Ipratropium [place] (Ipratropium 0.02% Nebu 2.5 Ml) 0.5 mg IH Q4HRT PRN PRN Reason: Shortness Of Breath Morphine Sulfate (Morphine 2 Mg/1 Ml Inj) 2 mg IV Q4H PRN PRN Reason: Pain, Moderate (4-6) Naloxone HCl (Naloxone 0.4 Mg/1 Ml Inj) 0.1 mg IV Q2MIN PRN PRN Reason: Res Rate </= 8 or 02 SAT < 92% Ondansetron HCl (Ondansetron 4 Mg/2 Ml Inj) 4 mg IV Q8H PRN PRN Reason: Nausea And Vomiting Sodium Chloride (Sodium Chloride 0.9% 10 Ml Flush Syringe) 10 ml IV BID [facility] Last Admin: 01/31/22 09:37 Dose: 10 ml Sodium Chloride (Sodium Chloride 0.9% 10 Ml Flush Syringe) 10 ml IV PRN PRN PRN Reason: LINE FLUSH Review of Systems Constitutional: no weight loss, no weight gain Ears, nose, mouth and throat: no sinus pressure, no sinus pain Cardiovascular: chest pain (Right-sided), shortness of breath, dyspnea on exertion, no orthopnea, no edema Respiratory: shortness of breath, dyspnea on exertion, pain on inspiration Gastrointestinal: no abdominal pain, no nausea, no vomiting Musculoskeletal: no neck stiffness, no neck pain Integumentary: no rash, no pruritis, no redness Neurological: no head injury, no transient paralysis Psychiatric: no anxiety, no memory loss Endocrine: no cold intolerance, no heat intolerance Physical Examination Vital Signs Temp Pulse Resp BP Pulse Ox 99.3 F 91 H 20 122/71 94 01/30/22 03:26 01/30/22 03:26 01/30/22 03:26 01/30/22 03:26 01/30/22 03:26 General appearance: no acute distress HEENT: Positive: PERRL Neck: Positive: trachea midline Cardiac: Positive: Reg Rate and Rhythm Lungs: Positive: Decreased Breath Sounds Neuro: Positive: Grossly Intact Abdomen: Positive: Soft, Active Bowel Sounds Skin: Negative: Rash, Suspicious Lesions Extremities: Present: upper extr. pulses. Absent: edema Results 01/31/22 04:48 01/31/22 04:48 Cardiac Enzymes 01/31/22 Range/Units 04:48 AST 12 (5-40) units/L CBC 01/31/22 Range/Units 04:48 WBC 13.4 H (4.5-11.0) K/mm3 RBC 4.55 (3.65-5.03) M/mm3 Hgb 13.3 (11.8-15.2) gm/dl Hct 41.1 (35.5-45.6) % Plt Count 192 (140-440) K/mm3 Lymph # (Auto) 1.2 (1.2-5.4) K/mm3 [place] # (Auto) 1.5 H (0.0-0.8) K/mm3 Eos # (Auto) 0.0 (0.0-0.4) K/mm3 Baso # (Auto) 0.0 (0.0-0.1) K/mm3 Comprehensive Metabolic Panel 01/31/22 Range/Units 04:48 Sodium 132 L D (137-145) mmol/L Potassium 4.3 (3.6-5.0) mmol/L Chloride 98.6 (98-107) mmol/L Carbon Dioxide 23 (22-30) mmol/L BUN 7 L (9-20) mg/dL Creatinine 0.6 L (0.8-1.3) mg/dL Glucose 122 H (75-100) mg/dL Calcium 8.7 (8.4-10.2) mg/dL AST 12 (5-40) units/L ALT 11 (7-56) units/L Alkaline Phosphatase 70 (35-129) units/L Total Protein 6.4 (6.3-8.2) g/dL Albumin 3.2 L (3.9-5) g/dL - Imaging and Cardiology Echo: report reviewed EKG: report reviewed, image reviewed EKG interpretations - Telemetry EKG Rhythm: Sinus Rhythm - EKG Sinus rhythms and dysrhythmias: sinus rhythm Ventricular dysrhythmias: ventricular premature com Repolarization changes or abnormalities: nonspecific abnormality, ST segment, and/or T wave Assessment and Plan Patient is a 51-year-old male with a past medical history of COPD who presented to the ED with a complaint of and shortness of breath x2 to 3-month Submassive PE-vascular following Acute respiratory failure HFrEF (compensated) Cardiomyopathy COPD History of tobacco use Cocaine use-UDS positive Echo 01/30/2022-EF 35 to 40%. Hypokinesis in the basal inferior septal wall and lateral wall. Mild diastolic dysfunction is present impaired laxation pattern. No pericardial effusion. Right ventricle is mildly dilated. Right ventricle systolic function is mildly reduced. Plan: EKG shows sinus rhythm 85 with PVCs and nonspecific T abnormalities. No acute ischemic changes. Troponins negative x1. Repeat cardiac enzyme pending Patient appears euvolemic on exam with negative BNP, no bilateral lower extremity edema. Patient not clinically in heart failure No beta-blockers due to cocaine use and positive urine drug screen Will initiate low-dose lisinopril 2.5 mg p.o. daily and aspirin Lipid panel pending Unable to perform ischemic evaluation at this time due to submassive PE and patient unable to lie flat Patient currently anticoagulated on heparin drip. Will defer management of PE to vascular Continue to monitor Patient seen in conjunction with Dr. Robertson who agrees with this plan of care - Patient Problems (1) Cocaine use Current Visit: Yes Status: Acute (2) Cardiomyopathy Current Visit: Yes Status: Acute (3) HFrEF (heart failure with reduced ejection fraction) Current Visit: Yes Status: Acute (4) COPD (chronic obstructive pulmonary disease) Current Visit: Yes Status: Acute (5) Acute respiratory failure with hypoxemia Current Visit: Yes Status: Acute (6) Pulmonary emboli Current Visit: Yes Status: Acute
[2022-01-31 20:36] LABS: Chol/HDL Ratio 3.71 %
[2022-02-01] MEDS ORDERED: HEPARIN 10,000 UNITS/10 ML VIAL ONE (00:43)
[2022-02-01] MEDS ORDERED: HEPARIN 10,000 UNITS/10 ML VIAL IV PRN (03:35)
[2022-02-01] MEDS: HYDROmorphone 0.5 MG/0.5 ML INJ IV PRN ×5 (05:10→17:33)
[2022-02-01] MEDS: ACETAMINOPHEN 325 MG TAB PO PRN ×2 (05:11→14:28)
[2022-02-01 05:14] LABS: Hematocrit 38.7 % (35.5-45.6); Hemoglobin 12.7 gm/dl (11.8-15.2)
[2022-02-01] MEDS: ASPIRIN 81 MG TAB CHEW PO SCH ×2 (08:31→12:51)
[2022-02-01] MEDS: LISINOPRIL 5 MG TAB PO SCH ×2 (08:32→12:51)
--- NOTE | 2022-02-01 11:10 | Progress Note ---
Assessment and Plan Patient is a 51-year-old male with a past medical history of COPD who presented to the ED with a complaint of and shortness of breath x2 to 3-month Submassive PE-vascular following Acute respiratory failure HFrEF (compensated) Cardiomyopathy COPD History of tobacco use Cocaine use-UDS positive Echo 01/30/2022-EF 35 to 40%. Hypokinesis in the basal inferior septal wall and lateral wall. Mild diastolic dysfunction is present impaired laxation pattern. No pericardial effusion. Right ventricle is mildly dilated. Right ventricle systolic function is mildly reduced. Plan: EKG shows sinus rhythm 85 with PVCs and nonspecific T abnormalities. No acute ischemic changes. Patient appears euvolemic on exam with negative BNP, no bilateral lower extremity edema. Patient not clinically in heart failure No beta-blockers due to cocaine use and positive urine drug screen Cotninue lisinopril 2.5 mg p.o. daily and aspirin Initiate lipitor 20mg PO QHS Unable to perform ischemic evaluation at this time due to submassive PE and patient unable to lie flat Patient currently anticoagulated on heparin drip. Will defer management of PE to vascular Continue to monitor Patient seen in conjunction with Dr. Robertson who agrees with this plan of care - Patient Problems (1) Cocaine use Current Visit: Yes Status: Acute (2) Cardiomyopathy Current Visit: Yes Status: Acute (3) HFrEF (heart failure with reduced ejection fraction) Current Visit: Yes Status: Acute (4) COPD (chronic obstructive pulmonary disease) Current Visit: Yes Status: Acute (5) Acute respiratory failure with hypoxemia Current Visit: Yes Status: Acute (6) Pulmonary emboli Current Visit: Yes Status: Acute Subjective Date of service: 02/01/22 Principal diagnosis: PE Interval history: Patient resting in bed in no acute distress. Patient reports slight improvement in respiratory status Sinus 80s to 90s on monitor with no event Objective Vital Signs Temp Pulse Resp BP BP Pulse Ox 02/01/22 08:01 99.4 F 86 18 128/75 95 02/01/22 05:11 18 02/01/22 04:56 102.2 F H 91 H 18 138/80 100 01/31/22 23:03 99.9 F H 95 H 18 135/78 96 01/31/22 21:53 18 97 01/31/22 20:16 89 01/31/22 19:46 99.5 F 91 H 20 129/69 97 01/31/22 17:14 99.9 F H 89 18 122/65 94 01/31/22 15:00 90 01/31/22 13:20 100.8 F H 101 H 18 137/71 96 - Physical Examination HEENT: Positive: PERRL Neck: Positive: trachea midline Cardiac: Positive: Reg Rate and Rhythm Lungs: Positive: Normal Breath Sounds Neuro: Positive: Grossly Intact Abdomen: Positive: Soft, Active Bowel Sounds Skin: Negative: Rash, Suspicious Lesions Extremities: Present: upper extr. pulses. Absent: edema - Labs and Meds Lipids 01/31/22 Range/Units 19:25 Triglycerides 85 (2-149) mg/dL Cholesterol 212 H (50-199) mg/dL HDL Cholesterol 57 (40-59) mg/dL Cholesterol/HDL Ratio 3.71 % CBC 02/01/22 Range/Units 04:41 Hgb 12.7 (11.8-15.2) gm/dl Hct 38.7 (35.5-45.6) % Plt Count 208 (140-440) K/mm3 - Imaging and Cardiology EKG: report reviewed, image reviewed Echo: report reviewed - Telemetry EKG Rhythm: Sinus Rhythm - EKG Sinus rhythms and dysrhythmias: sinus rhythm Ventricular dysrhythmias: ventricular premature com Repolarization changes or abnormalities: nonspecific abnormality, ST segment, and/or T wave
--- NOTE | 2022-02-01 14:05 | Progress Note ---
<ETHEL KISRE - Last Filed: 02/01/22 14:05> Assessment and Plan Assessment and plan: Acute hypoxic respiratory failure -2/2 PE -COVID-19 pcr negative, unvaccinated. -CTA Chest revealed extensive pulmonary emboli the largest involvement being the bifurcation of the right main pulmonary artery. Occlusive thrombus extending in the right middle lobe with additional nearly occlusive emboli in the right upper and right lower lobe lobar branches. Left lower lobe segmental branches with thrombi present. Right ventricular mildly enlarged suggestive of right ventricular strain. -On supplemental O2, wean as tolerated Submassive pulmonary embolism -CTA findings as above -Per vascular, not a current candidate for EKOS/thrombectomy due to inability to lay flat -Pain control for chest pain -On heparin gtt Pulmonary infarction -CTA chest consistent with rt lower lobe infarction -pain mgmt -anticoagulation as above -supportive care HFrEF -newly dx HFrEF, EF 35-40% on echo this admission, possibly nonischemic CMP from hx of cocaine abuse -No BB due to cocaine use and positive urine drug screen, Cotninue lisinopril 2.5 mg p.o. daily and aspirinInitiate lipitor 20mg qhs per cardiology recs -on continuous remote telemetry monitoring - Cardiology following Fever -TMAX 102 overnight -BC NGTD, repeat cultures pending -UA pending -?? r/t submassive PE -ID consulted History of chronic obstructive pulmonary disease -Duonebs prn Polysubstance abuse -UDS positive for cocaine, opiates, THC - Reinforced cessation counseling with verbalization of understanding History Interval history: 74-[id number] with past medical history of COPD who was admitted acute hypoxic respiratory failure 2/2 tp submassive PE and pulmonar infarction. Pt remains therapeutic on heparin gtt. Presently on 3L NC with O2 sat of 97%. Reports being able to ambulate in room with minimal dyspnea, continue to experience intermittent cough with hemoptysis. Overnight TMAX 102, ID consulted. Cardiology following. Hospitalist Physical - Constitutional Vitals: Temp Pulse Resp BP Pulse Ox 99.4 F 86 18 128/75 97 02/01/22 08:01 02/01/22 12:00 02/01/22 09:00 02/01/22 08:01 02/01/22 09:00 General appearance: Present: mild distress (Shortness of breath at rest) - EENT Eyes: Present: PERRL, EOM intact ENT: hearing intact, clear oral mucosa, dentition normal - Neck Neck: Present: supple, normal ROM - Respiratory Respiratory effort: normal Respiratory: bilateral: diminished (bases), other (on supplemental O2 3L NC) - Cardiovascular Heart Sounds: Present: S1 & S2. Absent: systolic murmur, diastolic murmur - Extremities Extremities: pulses intact, No edema Peripheral Pulses: within normal limits - Abdominal General gastrointestinal: soft, non-tender, normal bowel sounds - Integumentary Integumentary: Present: clear, warm, dry - Psychiatric Psychiatric: appropriate mood/affect, cooperative - Neurologic Neurologic: CNII-XII intact HEART Score - HEART Score EKG: Normal Age: 45-65 Risk factors: 1-2 risk factors Troponin: Troponin T < 0.010 ng/mL (0.00-0.029) 01/30/22 03:24 Troponin: < normal limit Results - Labs CBC & Chem 7: 02/01/22 04:41 01/31/22 04:48 Labs: Laboratory Last Values WBC 13.4 K/mm3 (4.5-11.0) H 01/31/22 04:48 RBC 4.55 M/mm3 (3.65-5.03) 01/31/22 04:48 Hgb 12.7 gm/dl (11.8-15.2) 02/01/22 04:41 Hct 38.7 % (35.5-45.6) 02/01/22 04:41 MCV 90 fl (84-94) 01/31/22 04:48 MCH 29 pg (28-32) 01/31/22 04:48 MCHC 32 % (32-34) 01/31/22 04:48 RDW 14.6 % (13.2-15.2) 01/31/22 04:48 Plt Count 208 K/mm3 (140-440) 02/01/22 04:41 Lymph % (Auto) 8.8 % (13.4-35.0) L 01/31/22 04:48 [place] % (Auto) 11.1 % (0.0-7.3) H 01/31/22 04:48 Eos % (Auto) 0.1 % (0.0-4.3) 01/31/22 04:48 Baso % (Auto) 0.3 % (0.0-1.8) 01/31/22 04:48 Lymph # (Auto) 1.2 K/mm3 (1.2-5.4) 01/31/22 04:48 [place] # (Auto) 1.5 K/mm3 (0.0-0.8) H 01/31/22 04:48 Eos # (Auto) 0.0 K/mm3 (0.0-0.4) 01/31/22 04:48 Baso # (Auto) 0.0 K/mm3 (0.0-0.1) 01/31/22 04:48 Seg Neutrophils % 79.7 % (40.0-70.0) H 01/31/22 04:48 Seg Neutrophils # 10.7 K/mm3 (1.8-7.7) H 01/31/22 04:48 PT 12.9 Sec. (12.2-14.9) 01/30/22 03:24 INR 0.88 (0.87-1.13) 01/30/22 03:24 APTT 26.1 Sec. (24.2-36.6) 01/30/22 03:24 D-Dimer 2958.59 ng/mlDDU (0-234) H 01/30/22 03:24 Heparin Anti-Xa Level 0.34 U.I./ml (0.3-0.7) 02/01/22 07:54 Sodium 132 mmol/L (137-145) L D 01/31/22 04:48 Potassium 4.3 mmol/L (3.6-5.0) 01/31/22 04:48 Chloride 98.6 mmol/L (98-107) 01/31/22 04:48 Carbon Dioxide 23 mmol/L (22-30) 01/31/22 04:48 Anion Gap 15 mmol/L 01/31/22 04:48 BUN 7 mg/dL (9-20) L 01/31/22 04:48 Creatinine 0.6 mg/dL (0.8-1.3) L 01/31/22 04:48 Estimated GFR > 60 ml/min 01/31/22 04:48 BUN/Creatinine Ratio 12 % 01/31/22 04:48 Glucose 122 mg/dL (75-100) H 01/31/22 04:48 Calcium 8.7 mg/dL (8.4-10.2) 01/31/22 04:48 Total Bilirubin 0.60 mg/dL (0.1-1.2) 01/31/22 04:48 AST 12 units/L (5-40) 01/31/22 04:48 ALT 11 units/L (7-56) 01/31/22 04:48 Alkaline Phosphatase 70 units/L (35-129) 01/31/22 04:48 Troponin T < 0.010 ng/mL (0.00-0.029) 01/30/22 03:24 NT-Pro-B Natriuret Pep 550.4 pg/mL (0-900) 01/30/22 03:24 Total Protein 6.4 g/dL (6.3-8.2) 01/31/22 04:48 Albumin 3.2 g/dL (3.9-5) L 01/31/22 04:48 Albumin/Globulin Ratio 1.0 % 01/31/22 04:48 Triglycerides 85 mg/dL (2-149) 01/31/22 19:25 Cholesterol 212 mg/dL (50-199) H 01/31/22 19:25 LDL Cholesterol Direct 140 mg/dL (50-130) H 01/31/22 19:25 HDL Cholesterol 57 mg/dL (40-59) 01/31/22 19:25 Cholesterol/HDL Ratio 3.71 % 01/31/22 19:25 Urine Opiates Screen Positive 01/30/22 Unknown Urine Methadone Screen Negative 01/30/22 Unknown Ur Barbiturates Screen Negative 01/30/22 Unknown Ur Phencyclidine Scrn Negative 01/30/22 Unknown Ur Amphetamines Screen Negative 01/30/22 Unknown U Benzodiazepines Scrn Negative 01/30/22 Unknown Urine Cocaine Screen Positive 01/30/22 Unknown U Marijuana (THC) Screen Positive 01/30/22 Unknown Drugs of Abuse Note Disclamer 01/30/22 Unknown SARS-CoV-2 (PCR) Negative (Negative) 01/30/22 09:33 Microbiology: Microbiology 02/01/22 07:54 Peripheral/Venous Blood Culture - Preliminary Culture in Progress 02/01/22 07:54 Peripheral/Venous Blood Culture - Preliminary Culture in Progress 01/30/22 03:42 Peripheral/Venous Blood Culture - Preliminary NO GROWTH AFTER 48 HOURS 01/30/22 03:35 Peripheral/Venous Blood Culture - Preliminary NO GROWTH AFTER 48 HOURS [place]/IV: Voiding Method Toilet Active Medications - Current Medications Current Medications: Generic Name Dose Route Start Last Admin Trade Name Freq PRN Reason Stop Dose Admin Acetaminophen 650 mg 01/30/22 17:44 02/01/22 05:11 Acetaminophen 325 Mg Tab PO 650 mg Q4H PRN Administration Pain MILD(1-3)/Fever >100.5/GALAVIZ Albuterol 2.5 mg 01/30/22 13:31 Albuterol 2.5 Mg/3 Ml Nebu IH Q4HRT PRN Shortness Of Breath Aspirin 81 mg 02/01/22 10:00 02/01/22 12:51 Aspirin 81 Mg Tab Chew PO Not Given [facility] Atorvastatin Calcium 20 mg 02/01/22 22:00 Atorvastatin 20 Mg Tab PO QHS [facility] Heparin Sodium (Porcine) 3,200 unit 02/01/22 03:35 Heparin 10,000 Units/10 Ml Vial IV Q6H PRN ANTI-Xa ASSAY <0.1units/ml Protocol Hydromorphone HCl 0.5 mg 01/30/22 17:44 02/01/22 11:33 Hydromorphone 0.5 Mg/0.5 Ml Inj IV 0.5 mg Q3H PRN Administration Pain , Severe (7-10) Heparin Sodium/Sodium Chloride 25,000 unit in 500 mls @ 21 mls/hr 01/30/22 06:00 02/01/22 08:41 Heparin/ 0.45% Nacl-25,000 Unit/500 Ml IV 1,500 units/hr TITR ERICK 30 mls/hr Titration Protocol 1,050 UNITS/HR Ipratropium [place] 0.5 mg 01/30/22 13:31 Ipratropium 0.02% Nebu 2.5 Ml IH Q4HRT PRN Shortness Of Breath Lisinopril 2.5 mg 02/01/22 10:00 02/01/22 12:51 Lisinopril 5 Mg Tab PO Not Given [facility] Morphine Sulfate 2 mg 01/30/22 17:44 Morphine 2 Mg/1 Ml Inj IV Q4H PRN Pain, Moderate (4-6) Naloxone HCl 0.1 mg 01/30/22 15:28 Naloxone 0.4 Mg/1 Ml Inj IV Q2MIN PRN Res Rate </= 8 or 02 SAT < 92% Ondansetron HCl 4 mg 01/30/22 12:52 Ondansetron 4 Mg/2 Ml Inj IV Q8H PRN Nausea And Vomiting Sodium Chloride 10 ml 01/30/22 22:00 02/01/22 12:51 Sodium Chloride 0.9% 10 Ml Flush Syringe IV Not Given BID ERICK Sodium Chloride 10 ml 01/30/22 17:44 Sodium Chloride 0.9% 10 Ml Flush Syringe IV PRN PRN LINE FLUSH <DANIEL CABA - Last Filed: 02/01/22 16:32> Assessment and Plan Assessment and plan: I saw and evaluated the patient. I agree with the findings and the plan of care as documented in the Nurse Practitioner's~note, with the following corrections and additions. Hospitalist Physical - Constitutional Vitals: Temp Pulse Resp BP Pulse Ox 101.7 F H 86 18 128/75 97 02/01/22 14:26 02/01/22 12:00 02/01/22 09:00 02/01/22 08:01 02/01/22 09:00 HEART Score - HEART Score Troponin: Troponin T < 0.010 ng/mL (0.00-0.029) 01/30/22 03:24 Results - Labs CBC & Chem 7: 02/01/22 04:41 01/31/22 04:48 Labs: Laboratory Last Values WBC 13.4 K/mm3 (4.5-11.0) H 01/31/22 04:48 RBC 4.55 M/mm3 (3.65-5.03) 01/31/22 04:48 Hgb 12.7 gm/dl (11.8-15.2) 02/01/22 04:41 Hct 38.7 % (35.5-45.6) 02/01/22 04:41 MCV 90 fl (84-94) 01/31/22 04:48 MCH 29 pg (28-32) 01/31/22 04:48 MCHC 32 % (32-34) 01/31/22 04:48 RDW 14.6 % (13.2-15.2) 01/31/22 04:48 Plt Count 208 K/mm3 (140-440) 02/01/22 04:41 Lymph % (Auto) 8.8 % (13.4-35.0) L 01/31/22 04:48 [place] % (Auto) 11.1 % (0.0-7.3) H 01/31/22 04:48 Eos % (Auto) 0.1 % (0.0-4.3) 01/31/22 04:48 Baso % (Auto) 0.3 % (0.0-1.8) 01/31/22 04:48 Lymph # (Auto) 1.2 K/mm3 (1.2-5.4) 01/31/22 04:48 [place] # (Auto) 1.5 K/mm3 (0.0-0.8) H 01/31/22 04:48 Eos # (Auto) 0.0 K/mm3 (0.0-0.4) 01/31/22 04:48 Baso # (Auto) 0.0 K/mm3 (0.0-0.1) 01/31/22 04:48 Seg Neutrophils % 79.7 % (40.0-70.0) H 01/31/22 04:48 Seg Neutrophils # 10.7 K/mm3 (1.8-7.7) H 01/31/22 04:48 PT 12.9 Sec. (12.2-14.9) 01/30/22 03:24 INR 0.88 (0.87-1.13) 01/30/22 03:24 APTT 26.1 Sec. (24.2-36.6) 01/30/22 03:24 D-Dimer 2958.59 ng/mlDDU (0-234) H 01/30/22 03:24 Heparin Anti-Xa Level 0.34 U.I./ml (0.3-0.7) 02/01/22 07:54 Sodium 132 mmol/L (137-145) L D 01/31/22 04:48 Potassium 4.3 mmol/L (3.6-5.0) 01/31/22 04:48 Chloride 98.6 mmol/L (98-107) 01/31/22 04:48 Carbon Dioxide 23 mmol/L (22-30) 01/31/22 04:48 Anion Gap 15 mmol/L 01/31/22 04:48 BUN 7 mg/dL (9-20) L 01/31/22 04:48 Creatinine 0.6 mg/dL (0.8-1.3) L 01/31/22 04:48 Estimated GFR > 60 ml/min 01/31/22 04:48 BUN/Creatinine Ratio 12 % 01/31/22 04:48 Glucose 122 mg/dL (75-100) H 01/31/22 04:48 Calcium 8.7 mg/dL (8.4-10.2) 01/31/22 04:48 Total Bilirubin 0.60 mg/dL (0.1-1.2) 01/31/22 04:48 AST 12 units/L (5-40) 01/31/22 04:48 ALT 11 units/L (7-56) 01/31/22 04:48 Alkaline Phosphatase 70 units/L (35-129) 01/31/22 04:48 Troponin T < 0.010 ng/mL (0.00-0.029) 01/30/22 03:24 NT-Pro-B Natriuret Pep 550.4 pg/mL (0-900) 01/30/22 03:24 Total Protein 6.4 g/dL (6.3-8.2) 01/31/22 04:48 Albumin 3.2 g/dL (3.9-5) L 01/31/22 04:48 Albumin/Globulin Ratio 1.0 % 01/31/22 04:48 Triglycerides 85 mg/dL (2-149) 01/31/22 19:25 Cholesterol 212 mg/dL (50-199) H 01/31/22 19:25 LDL Cholesterol Direct 140 mg/dL (50-130) H 01/31/22 19:25 HDL Cholesterol 57 mg/dL (40-59) 01/31/22 19:25 Cholesterol/HDL Ratio 3.71 % 01/31/22 19:25 Urine Opiates Screen Positive 01/30/22 Unknown Urine Methadone Screen Negative 01/30/22 Unknown Ur Barbiturates Screen Negative 01/30/22 Unknown Ur Phencyclidine Scrn Negative 01/30/22 Unknown Ur Amphetamines Screen Negative 01/30/22 Unknown U Benzodiazepines Scrn Negative 01/30/22 Unknown Urine Cocaine Screen Positive 01/30/22 Unknown U Marijuana (THC) Screen Positive 01/30/22 Unknown Drugs of Abuse Note Disclamer 01/30/22 Unknown SARS-CoV-2 (PCR) Negative (Negative) 01/30/22 09:33 Microbiology: Microbiology 02/01/22 07:54 Peripheral/Venous Blood Culture - Preliminary Culture in Progress 02/01/22 07:54 Peripheral/Venous Blood Culture - Preliminary Culture in Progress 01/30/22 03:42 Peripheral/Venous Blood Culture - Preliminary NO GROWTH AFTER 48 HOURS 01/30/22 03:35 Peripheral/Venous Blood Culture - Preliminary NO GROWTH AFTER 48 HOURS [place]/IV: Voiding Method Toilet Active Medications - Current Medications Current Medications: Generic Name Dose Route Start Last Admin Trade Name Freq PRN Reason Stop Dose Admin Acetaminophen 650 mg 01/30/22 17:44 02/01/22 14:28 Acetaminophen 325 Mg Tab PO 650 mg Q4H PRN Administration Pain MILD(1-3)/Fever >100.5/GALAVIZ Albuterol 2.5 mg 01/30/22 13:31 Albuterol 2.5 Mg/3 Ml Nebu IH Q4HRT PRN Shortness Of Breath Aspirin 81 mg 02/01/22 10:00 02/01/22 12:51 Aspirin 81 Mg Tab Chew PO Not Given QDAY [facility] Atorvastatin Calcium 20 mg 02/01/22 22:00 Atorvastatin 20 Mg Tab PO QHS ERICK Heparin Sodium (Porcine) 3,200 unit 02/01/22 03:35 Heparin 10,000 Units/10 Ml Vial IV Q6H PRN ANTI-Xa ASSAY <0.1units/ml Protocol Hydromorphone HCl 0.5 mg 01/30/22 17:44 02/01/22 14:34 Hydromorphone 0.5 Mg/0.5 Ml Inj IV 0.5 mg Q3H PRN Administration Pain , Severe (7-10) Heparin Sodium/Sodium Chloride 25,000 unit in 500 mls @ 21 mls/hr 01/30/22 06 :00 02/01/22 08:41 Heparin/ 0.45% Nacl-25,000 Unit/500 Ml IV 1,500 units/hr TITR ERICK 30 mls/hr Titration Protocol 1,050 UNITS/HR Ipratropium [place] 0.5 mg 01/30/22 13:31 Ipratropium 0.02% Nebu 2.5 Ml IH Q4HRT PRN Shortness Of Breath Lisinopril 2.5 mg 02/01/22 10:00 02/01/22 12:51 Lisinopril 5 Mg Tab PO Not Given QDAY [facility] Morphine Sulfate 2 mg 01/30/22 17:44 Morphine 2 Mg/1 Ml Inj IV Q4H PRN Pain, Moderate (4-6) Naloxone HCl 0.1 mg 01/30/22 15:28 Naloxone 0.4 Mg/1 Ml Inj IV Q2MIN PRN Res Rate </= 8 or 02 SAT < 92% Ondansetron HCl 4 mg 01/30/22 12:52 Ondansetron 4 Mg/2 Ml Inj IV Q8H PRN Nausea And Vomiting Sodium Chloride 10 ml 01/30/22 22:00 02/01/22 12:51 Sodium Chloride 0.9% 10 Ml Flush Syringe IV Not Given BID ERICK Sodium Chloride 10 ml 01/30/22 17:44 Sodium Chloride 0.9% 10 Ml Flush Syringe IV PRN PRN LINE FLUSH
--- NOTE | 2022-02-01 15:30 | Consultation ---
History of Present Illness - Reason for Consult Consult date: 02/01/22 - History of Present Illness 51-year-old man past medical history COPD presented to hospital complaining of right-sided chest pain and shortness of breath. This began approximately 3 days prior to admission and has worsened since onset. He has not vaccinated against COVID. He was found to have submassive right-sided pulmonary embolism. We are consulted for ongoing fevers. Febrile to 101.7 with a white count of 13.4. COVID-negative. Normal renal function. Blood cultures no growth so far. Currently on no antibiotics. Imaging personally reviewed: Chest CTA: Extensive bilateral pulmonary emboli Review of Systems: Bold if positive, otherwise negative General: fevers, chills, rigors HEENT: visual disturbance, diplopia, eye pain Respiratory: cough, sputum, hemoptysis, shortness of breath Cardiovascular: chest pain, syncope Gastrointestinal: nausea, vomiting, diarrhea, abdominal pain Genitourinary: dysuria, hematuria, flank pain Musculoskeletal: neck pain, back pain, joint pain, edema Neurologic: headaches, seizures Hematologic: easy bruising or bleeding Endocrine: night sweats, acute weight loss Skin: rash, jaundice, redness Psychiatric: suicidal, homicidal ideation Past History Past Medical History: COPD Past Surgical History: No surgical history Social history: smoking Family history: CAD, cancer (Lung cancer) Medications and Allergies Allergies Allergy/AdvReac Type Severity Reaction Status Date / Time No Known Allergies Allergy Unverified 01/30/22 03:19 Home Medications Medication Instructions Recorded Confirmed Last Taken Type No Known Home Medications [No 01/31/22 01/31/22 Unknown History Reported Home Medications] Active Meds: Active Medications Acetaminophen (Acetaminophen 325 Mg Tab) 650 mg PO Q4H PRN PRN Reason: Pain MILD(1-3)/Fever >100.5/GALAVIZ Last Admin: 02/01/22 14:28 Dose: 650 mg Albuterol (Albuterol 2.5 Mg/3 Ml Nebu) 2.5 mg IH Q4HRT PRN PRN Reason: Shortness Of Breath Aspirin (Aspirin 81 Mg Tab Chew) 81 mg PO QDAY [facility] Last Admin: 02/01/22 12:51 Dose: Not Given Atorvastatin Calcium (Atorvastatin 20 Mg Tab) 20 mg PO QHS [facility] Heparin Sodium (Porcine) (Heparin 10,000 Units/10 Ml Vial) 3,200 unit IV Q6H PRN; Protocol PRN Reason: ANTI-Xa ASSAY <0.1units/ml Hydromorphone HCl (Hydromorphone 0.5 Mg/0.5 Ml Inj) 0.5 mg IV Q3H PRN PRN Reason: Pain , Severe (7-10) Last Admin: 02/01/22 14:34 Dose: 0.5 mg Heparin Sodium/Sodium Chloride (Heparin/ 0.45% Nacl-25,000 Unit/500 Ml) 25,000 unit in 500 mls @ 21 mls/hr IV TITR [facility]; Protocol Last Titration: 02/01/22 08:41 Dose: 1,500 units/hr, 30 mls/hr Ipratropium [place] (Ipratropium 0.02% Nebu 2.5 Ml) 0.5 mg IH Q4HRT PRN PRN Reason: Shortness Of Breath Lisinopril (Lisinopril 5 Mg Tab) 2.5 mg PO QDAY [facility] Last Admin: 02/01/22 12:51 Dose: Not Given Morphine Sulfate (Morphine 2 Mg/1 Ml Inj) 2 mg IV Q4H PRN PRN Reason: Pain, Moderate (4-6) Naloxone HCl (Naloxone 0.4 Mg/1 Ml Inj) 0.1 mg IV Q2MIN PRN PRN Reason: Res Rate </= 8 or 02 SAT < 92% Ondansetron HCl (Ondansetron 4 Mg/2 Ml Inj) 4 mg IV Q8H PRN PRN Reason: Nausea And Vomiting Sodium Chloride (Sodium Chloride 0.9% 10 Ml Flush Syringe) 10 ml IV BID [facility] Last Admin: 02/01/22 12:51 Dose: Not Given Sodium Chloride (Sodium Chloride 0.9% 10 Ml Flush Syringe) 10 ml IV PRN PRN PRN Reason: LINE FLUSH Physical Examination - Physical Exam Narrative exam: Physical Exam: Constitutional: Alert, cooperative. No acute distress Head, Ears, Nose: Normocephalic, atraumatic. External ears, nose normal Eyes: Conjunctivae/corneas clear. No icterus. No ptosis. Neck: Supple, no meningeal signs Oral: dentition fair, no thrush Cardiovascular: S1, S2 normal. Respiratory: Good air entry, clear to auscultation bilaterally GI: Soft, non-tender; bowel sounds normal. No peritoneal signs. Musculoskeletal: No pedal edema, no cyanosis. Skin: No rash or abscess Hem/Lymphatic: No palpable cervical or supraclavicular nodes. No lymphangitis Psych: Mood ok. Affect normal Neurological: Awake, alert, oriented. No gross abnormality - Constitutional Vitals: Vital Signs Temp Pulse Resp BP Pulse Ox 101.7 F H 86 18 128/75 97 02/01/22 14:26 02/01/22 12:00 02/01/22 09:00 02/01/22 08:01 02/01/22 09:00 Temperature -Last 24 Hours Temperature 101.7 F Temperature 99.4 F Temperature 102.2 F Temperature 99.9 F Temperature 99.5 F Temperature 99.9 F Results - Labs CBC & Chem 7: 02/01/22 04:41 01/31/22 04:48 Labs: Abnormal lab results 01/31/22 01/31/22 01/31/22 Range/Units 15:15 19:25 22:29 Heparin Anti-Xa Level 0.20 L < 0.10 L (0.3-0.7) U.I./ml Cholesterol 212 H (50-199) mg/dL LDL Cholesterol Direct 140 H (50-130) mg/dL Assessment and Plan Cultures: Blood culture 01/30/2022 no growth so far Blood culture 02/01/2022 no growth so far A/P: 51-year-old man past medical history COPD now with: #SIRS/sepsis: With fevers and tachycardia. Most likely secondary to submassive PE. Cultures been negative so far. No evidence of pneumonia. #Submassive pulmonary emboli: Quite large and occlusive. Recs: -Would hold off on antibiotics for now presuming blood cultures remain negative. -Monitor fever curve Thank you for the consult, we will continue to follow. Efren Walton MD [facility] ([facility]) O: [phone] F: [phone]
[2022-02-01 17:55] LABS: Bilirubin,Urine NEG (Negative); Blood,Urine SM (Negative); Color,Urine Yellow (Yellow); Protein,Urine <15 mg/dL mg/dL (Negative); RBC,Urine < 1.0 /HPF (0.0-6.0); WBC,Urine < 1.0 /HPF (0.0-6.0)
[2022-02-01] MEDS: HEPARIN/ 0.45% NACL DRIP 25,000 UNIT/500 ML BAG IV SCH (21:46)
[2022-02-02] MEDS: HYDROmorphone 0.5 MG/0.5 ML INJ IV PRN ×3 (00:05→10:48)
--- NOTE | 2022-02-02 09:59 | Progress Note ---
Assessment and Plan Patient is a 51-year-old male with a past medical history of COPD who presented to the ED with a complaint of and shortness of breath x2 to 3-month Submassive PE-vascular following Acute respiratory failure HFrEF (compensated) Cardiomyopathy COPD History of tobacco use Cocaine use-UDS positive Echo 01/30/2022-EF 35 to 40%. Hypokinesis in the basal inferior septal wall and lateral wall. Mild diastolic dysfunction is present impaired laxation pattern. No pericardial effusion. Right ventricle is mildly dilated. Right ventricle systolic function is mildly reduced. Plan: No beta-blockers due to cocaine use and positive urine drug screen Cotninue lisinopril 2.5 mg p.o. daily, aspirin, and lipitor 20mg PO QHS Unable to perform ischemic evaluation at this time due to submassive PE and patient unable to lie flat Patient currently anticoagulated on heparin drip. Will defer management of PE to vascular Will plan to perform ischemic eval as an outpatient Discussed with patient the importance of following up as an outpatient for ischemic eval. Patient verbalized understanding and agreement Cardiac status otherwise stable we will see as needed Patient follow-up with Dr. Robertson, [facility] retail asset protection specialist, in 1 to 2 weeks after discharge. Phone #[phone] Patient seen in conjunction with Dr. Robertson who agrees with this plan of care - Patient Problems (1) Cocaine use Current Visit: Yes Status: Acute (2) Cardiomyopathy Current Visit: Yes Status: Acute (3) HFrEF (heart failure with reduced ejection fraction) Current Visit: Yes Status: Acute (4) COPD (chronic obstructive pulmonary disease) Current Visit: Yes Status: Acute (5) Acute respiratory failure with hypoxemia Current Visit: Yes Status: Acute (6) Pulmonary emboli Current Visit: Yes Status: Acute Subjective Date of service: 02/02/22 Principal diagnosis: PE Interval history: Patient resting in bed in no acute distress. Patient reports continued improvement in respiratory status Sinus 80s on monitor with no event Objective Vital Signs Temp Pulse Resp BP Pulse Ox 02/02/22 03:43 99.4 F 85 20 124/75 94 02/02/22 00:10 18 97 02/01/22 23:10 99.9 F H 95 H 20 145/86 96 02/01/22 20:30 84 02/01/22 20:17 99.6 F 84 20 121/71 98 02/01/22 15:14 98.5 F 18 139/78 02/01/22 14:26 101.7 F H 02/01/22 12:00 86 - Physical Examination General: No Apparent Distress HEENT: Positive: PERRL Neck: Positive: trachea midline Cardiac: Positive: Reg Rate and Rhythm Lungs: Positive: Normal Breath Sounds Neuro: Positive: Grossly Intact Abdomen: Positive: Soft, Active Bowel Sounds Skin: Negative: Rash, Suspicious Lesions Extremities: Present: upper extr. pulses. Absent: edema - Imaging and Cardiology EKG: report reviewed, image reviewed Echo: report reviewed - Telemetry EKG Rhythm: Sinus Rhythm - EKG Sinus rhythms and dysrhythmias: sinus rhythm Ventricular dysrhythmias: ventricular premature com Repolarization changes or abnormalities: nonspecific abnormality, ST segment, and/or T wave
[2022-02-02] MEDS: ASPIRIN 81 MG TAB CHEW PO SCH (10:49)
[2022-02-02] MEDS: LISINOPRIL 5 MG TAB PO SCH (10:49)
[2022-02-02 10:50] VITALS: BP 125/68
--- NOTE | 2022-02-02 12:20 | Discharge Summary ---
Providers - Providers Date of Admission: 01/30/22 17:44 Date of discharge: 02/02/22 Attending physician: LEXI ALMEIDA MD 01/30/22 05:55 Consult to Physician [CONS] Urgent Comment: Dr. Olmedo spoke with Dr. Hugo @ 0612 Consulting Provider: SHREYA HUGO Physician Instructions: Reason For Exam: extensive pulmonary emboli 01/31/22 15:20 Consult to Physician [CONS] Routine Comment: Consulting Provider: JOHN BRYANT Physician Instructions: Reason For Exam: hfref 02/01/22 07:41 Consult to Physician [CONS] Routine Comment: Consulting Provider: SAMIR SIU Physician Instructions: Reason For Exam: sepsis Primary care physician: USED [employer] ATTENDANT Hospitalization Condition: Stable Hospital course: History of present illness: 51-year-old gentleman with past medical history of COPD not on home O2 presenting to our facility with complaint of right-sided chest pain and shortness of breath. Symptomology started approximately 3 days ago with right- sided chest pain which he rates as a 10 out of 10 and progressed to severe shortness of breath. Patient denied any fevers or chills. He is not vaccinated for COVID. He denied any recent travel, prolonged immobilization, surgeries, personal history of cancers. He denied any prior history of DVT or PE. He denies any prior history of blood clotting disorders. Initial CTA chest demonstrates submassive right-sided pulmonary embolism. Patient very uncomfortable on my encounter. Requiring 4 - 5 L/min nasal cannula oxygen on my encounter. Vital signs otherwise stable. Hospital Course: Patient was admitted for acute hypoxic respiratory failure secondary to submassive pulmonary embolism. he was not deemed a candidate for thrombectomy /EKOS due to inability to lay on laboratory manager table. Patient was treated with heparin gtt. Work up with ECHO cardiogram revealed HFrEF, EF = 35%. Initiated on lisinopril 2.5 mg p.o. daily, aspirin, and lipitor 20mg PO QHS by cardiology service. Patient demonstrated improvement by the time of discharge. he will be discharged home with rx for aspirin, lipitor, lisinopril for GDMT HF management as well as Xarelto for PE management. He was advised to avoid cocaine and advised to follow up with his primary care doctor. Assessment and Plan: Acute hypoxic respiratory failure -2/2 PE -COVID-19 pcr negative, unvaccinated. -CTA Chest revealed extensive pulmonary emboli the largest involvement being the bifurcation of the right main pulmonary artery. Occlusive thrombus extending in the right middle lobe with additional nearly occlusive emboli in the right upper and right lower lobe lobar branches. Left lower lobe segmental branches with thrombi present. Right ventricular mildly enlarged suggestive of right ventricular strain. -On supplemental O2, wean as tolerated Submassive pulmonary embolism -CTA findings as above -Per vascular, not a current candidate for EKOS/thrombectomy due to inability to lay flat -Pain control for chest pain -On heparin gtt Pulmonary infarction -CTA chest consistent with rt lower lobe infarction -pain mgmt -anticoagulation as above -supportive care HFrEF -newly dx HFrEF, EF 35-40% on echo this admission, possibly nonischemic CMP from hx of cocaine abuse -No BB due to cocaine use and positive urine drug screen, Cotninue lisinopril 2.5 mg p.o. daily and aspirinInitiate lipitor 20mg qhs per cardiology recs -on continuous remote telemetry monitoring - Cardiology following - GDMT: Continue lisinopril 2.5 mg p.o. daily, aspirin, and lipitor 20mg PO QHS - avoid BB due to hx of cocaine abuse Fever -TMAX 102 overnight -BC NGTD, repeat cultures pending -UA pending -?? r/t submassive PE -ID consulted History of chronic obstructive pulmonary disease -Duonebs prn Polysubstance abuse -UDS positive for cocaine, opiates, THC - Reinforced cessation counseling with verbalization of understanding Disposition: 01 HOME / SELF CARE / HOMELESS Final Discharge Diagnosis (Prints w/discharge instructions): submassive pulmonary embolism, Heart failure with reduced ejection fraction Time spent for discharge: 35 Core Measure Documentation - Palliative Care Palliative Care/ Comfort Measures: Not Applicable - Core Measures Any of the following diagnoses?: DVT/PE - VTE Discharge Requirements Deep Vein Thrombosis/Pulmonary Embolism Present on Admission: Yes Has pt received <5 days of overlap therapy or INR<2.0: Yes Anticoagulant overlap therapy prescribed at discharge: Yes Exam - Physical Exam Narrative exam: Physical Exam: VITAL SIGNS: Reviewed. GENERAL: The patient appears normally developed, Vital signs as documented. NAD, currently on HEAD: No signs of head trauma. EYES: Pupils are equal. Extraocular motions intact. EARS: Hearing grossly intact. MOUTH: Oropharynx is normal. NECK: No adenopathy, no JVD. CHEST: Chest with clear breath sounds bilaterally. No wheezes, rales, or rhonchi. CARDIAC: Regular rate and rhythm. S1 and S2, without murmurs, gallops, or rubs. VASCULAR: No Edema. Peripheral pulses normal and equal in all extremities. ABDOMEN: Soft, non tender and non distended. No rebound or guarding, and no masses palpated. Bowel Sounds normal. MUSCULOSKELETAL: Good range of motion of all major joints. Extremities without clubbing, cyanosis or edema. NEUROLOGIC EXAM: Alert and oriented x 4. no focal sensory or strength deficits. PSYCHIATRIC: Mood normal. SKIN: detail exam as documented in skin assessment - Constitutional Vitals: Temp Pulse Resp BP Pulse Ox 99.1 F 93 H 20 125/68 92 02/02/22 06:24 02/02/22 06:24 02/02/22 06:24 02/02/22 10:49 02/02/22 06:24 Plan Follow up with: PRIMARY CARE, [Primary Care Provider] - 3-5 Days Prescriptions: AtorvaSTATin [Lipitor] 20 mg PO QHS 30 Days #30 tablet Aspirin [Aspirin BABY CHEW TAB] 81 mg PO QDAY 30 Days #30 tab.chew Rivaroxaban [Xarelto] 15 mg PO QDAY 21 Days #42 tablet Rivaroxaban [Xarelto] 20 mg PO QDAY 30 Days #30 tab lisinopriL [Zestril TAB] 2.5 mg PO QDAY 30 Days #30 tablet
--- NOTE | 2022-02-02 15:22 | Progress Note ---
Assessment and Plan Cultures: Blood culture 01/30/2022 no growth so far Blood culture 02/01/2022 no growth so far A/P: 51-year-old man past medical history COPD now with: #SIRS/sepsis: With fevers and tachycardia. Most likely secondary to submassive PE. Cultures been negative so far. No evidence of pneumonia. #Submassive pulmonary emboli: Quite large and occlusive. Recs: -Would hold off on antibiotics for now presuming blood cultures remain negative. -Monitor fever curve Okay for discharge from infectious disease perspective Thank you for the consult, we will continue to follow. Efren Walton MD [facility] ([facility]) O: [phone] F: [phone] Subjective Date of service: 02/02/22 Principal diagnosis: PE Interval history: Improving fever curve, afebrile over past 24 hours. No acute change. Objective - Exam Narrative Exam: Physical Exam: Constitutional: Alert, cooperative. No acute distress Head, Ears, Nose: Normocephalic, atraumatic. External ears, nose normal Eyes: Conjunctivae/corneas clear. No icterus. No ptosis. Neck: Supple, no meningeal signs Oral: dentition fair, no thrush Cardiovascular: S1, S2 normal. Respiratory: Good air entry, clear to auscultation bilaterally GI: Soft, non-tender; bowel sounds normal. No peritoneal signs. Musculoskeletal: No pedal edema, no cyanosis. Skin: No rash or abscess Hem/Lymphatic: No palpable cervical or supraclavicular nodes. No lymphangitis Psych: Mood ok. Affect normal Neurological: Awake, alert, oriented. No gross abnormality - Constitutional Vitals: Vital Signs Temp Pulse Resp BP Pulse Ox 99.1 F 93 H 20 125/68 92 02/02/22 06:24 02/02/22 06:24 02/02/22 06:24 02/02/22 10:49 02/02/22 06:24 Temperature -Last 24 Hours Temperature 99.1 F Temperature 99.4 F Temperature 99.9 F Temperature 99.6 F - Labs CBC & Chem 7: 02/01/22 04:41 01/31/22 04:48 Labs: Abnormal lab results 02/01/22 02/02/22 Range/Units 17:43 07:08 Heparin Anti-Xa Level 0.21 L (0.3-0.7) U.I./ml Urine pH 8.0 H (5.0-7.0)
== END 2022-02-02 15:27 | disposition home or self-care (01) | DRG 175 ==
LOC: ED 02:45 → 4A 17:44
PROVIDERS: ADMIT Orthopaedic Surgery; ATTEND Internal Medicine
DX: I26.99 Other pulmonary embolism without acute cor pulmonale (principal); J96.01 Acute respiratory failure with hypoxia; A41.9 Sepsis, unspecified organism; J44.0 Chronic obstructive pulmonary disease with (acute) lower respiratory infection; I50.20 Unspecified systolic (congestive) heart failure; I42.9 Cardiomyopathy, unspecified; Z20.822 Contact with and (suspected) exposure to COVID-19; J44.9 Chronic obstructive pulmonary disease, unspecified; F14.10 Cocaine abuse, uncomplicated; F11.10 Opioid abuse, uncomplicated; Z82.49 Family history of ischemic heart disease and other diseases of the circulatory system; Z80.1 Family history of malignant neoplasm of trachea, bronchus and lung
CPT/HCPCS: 36415; 71045; 71275; 80053; 80061; 80307; 81001; 83880; 84484; 85014; 85018; 85025; 85049; 85379; 85520; 85610; 85730; 87040; 87086; 93005; 93306; 94644; G0378; J3490; C8929; J0456; J0696; J1170; J1644; J2270; J2405; J3010; Q9967; U0003

== ENCOUNTER 2022-05-08 04:18 | Inpatient (IN) | payer SELFPAY ==
--- NOTE | 2022-05-08 05:51 | XRay Report ---
CHEST 1 VIEW INDICATION / CLINICAL INFORMATION: CHEST PAINS. History of PTE COMPARISON: 01/30/2022 FINDINGS: SUPPORT DEVICES: None. HEART / MEDIASTINUM: No significant abnormality. LUNGS / PLEURA: There is minimal opacity in the right base. This represents significant improvement i n the previously noted pulmonary opacities throughout the right lower lobe on prior chest radiograph. The small residual opacity may represent scarring. The lungs are otherwise clear. No pleural effusio n. No pneumothorax. ADDITIONAL FINDINGS: No significant additional findings. IMPRESSION: 1. Very small pulmonary opacity, right lung base. This could potentially represent scarring as there was significant pulmonary disease in this region of the lung on prior chest radiograph from 01/30/2022 . 2. No other significant finding. Signer Name: Sammie Mccollum MD Signed: 05/08/2022 5:47 AM Workstation Name: [id number]
[2022-05-08 06:16] LABS: Hematocrit 45.8 % (35.5-45.6); Mean Corpuscular HGB Conc 33 % (32-34); Mean Corpuscular Volume 90 fl (84-94); Platelet Count 179 K/mm3 (140-440); Red Blood Count 5.09 M/mm3 (3.65-5.03); Red Cell Distribution Width 15.8 % (13.2-15.2)
[2022-05-08 06:45] LABS: Alanine Aminotransferase 11 units/L (7-56); Albumin 3.3 g/dL (3.9-5); BUN/Creatinine Ratio 5; Blood Urea Nitrogen 5 mg/dL (9-20); Calcium 8.4 mg/dL (8.4-10.2); Hemolysis Index 15
[2022-05-08 07:30] LABS: Chol/HDL Ratio 3.97 %; HDL Cholesterol 48 mg/dL (40-59); LDL Cholesterol,Direct 129 mg/dL (50-130)
--- NOTE | 2022-05-08 09:20 | Cat Scan Report ---
CTA CHEST WITH CONTRAST INDICATION / CLINICAL INFORMATION: sob. TECHNIQUE: Axial CT images were obtained through the chest after injection of IV contrast. 3 plane W[place] P and/or 3D reconstructions were produced. All CT scans at this location are performed using CT dose reduction for ALARA by means of automated exposure control. COMPARISON: CTA chest on 01/30/2022 FINDINGS: PULMONARY EMBOLUS: None. THORACIC AORTA: No significant abnormality. HEART: No significant abnormality. CORONARY ARTERY CALCIFICATION: Absent -- None. MEDIASTINUM / CARIDAD: No significant abnormality. PLEURA: No pleural effusion. No pneumothorax. LUNGS: No acute air space or interstitial disease. There is a small area of round atelectasis in the lateral right middle lobe. There are a few scattered calcified granulomata. There is mild upper lobe paraseptal emphysema. ADDITIONAL FINDINGS: None. UPPER ABDOMEN: No acute findings. SKELETAL STRUCTURES: No significant osseous abnormality. IMPRESSION: 1. No CT evidence for pulmonary embolism. 2. No acute findings. Signer Name: Vickey Mcgowan MD Signed: 05/08/2022 9:16 AM Workstation Name: [employer]
[2022-05-08] MEDS ORDERED: HEPARIN BOLUS 10,000 UNIT/10 ML VIAL IV ONE (11:32)
--- NOTE | 2022-05-08 12:02 | History and Physical Report ---
History of Present Illness Chief complaint: I am having chest pain History of present illness: 52 YO Male with COPD, PE on Therapeutic anticoagulation with Xarelto, Cocaine Dependence, Nicotine Dependence presents to ED for evaluation. Patient reports "I am having chest pain". Patient states that he has experienced pain in his chest over the past 2 days. Patient states that the pain was initially intermittent but has become more constant at this time. Patient states that pain is 6/10, constant, worsened with exertion, relieved with rest, associated with shortness of breath, substernal, nonradiating. EMS was notified and upon arrival the patient was found to be in distress and subsequent transported to [facility] for further care and evaluation of the aforementioned symptoms. The patient was seen and evaluated in the emergency department. All lab and imaging studies reviewed. Patient found to have laboratory findings consistent with NSTEMI, as well as angina at rest, as well as clinical symptoms consistent with CHF decompensation. Patient admitted to telemetry and initiated on ACS protocol as well as CHF protocol. Patient initiated on therapeutic anticoagulation in the emergency department. Patient denies fever, chills, productive cough, skin rash, recent contact, or known exposure to COVID-19. Prior admission on 01/30/2022 reviewed. All medication listed at time of admission has been reconci led. Advanced care planning conducted in ED. Past History Past Medical History: COPD, heart failure, hypertension, pulmonary embolism Past Surgical History: appendectomy Social history: single, smoking Family history: hypertension Medications and Allergies Allergies Allergy/AdvReac Type Severity Reaction Status Date / Time No Known Allergies Allergy Unverified 01/30/22 03:19 Home Medications Medication Instructions Recorded Confirmed Last Taken Type Aspirin [Aspirin BABY CHEW TAB] 81 mg PO QDAY 30 Days #30 tab.chew 02/02/22 Unknown Rx AtorvaSTATin [Lipitor] 20 mg PO QHS 30 Days #30 tablet 02/02/22 Unknown Rx Rivaroxaban [Xarelto] 15 mg PO QDAY 21 Days #42 tablet 02/02/22 Unknown Rx Rivaroxaban [Xarelto] 20 mg PO QDAY 30 Days #30 tab 02/02/22 Unknown Rx lisinopriL [Zestril TAB] 2.5 mg PO QDAY 30 Days #30 tablet 02/02/22 Unknown Rx Review of Systems Constitutional: no weight loss, no weight gain, no fever, no chills Ears, nose, mouth and throat: no ear pain, no ear discharge, no tinnitis, no decreased hearing, no nose pain, no nasal discharge Cardiovascular: chest pain, shortness of breath, decreased exercise tolerance Respiratory: no cough, no cough with sputum, no excessive sputum Gastrointestinal: no abdominal pain, no nausea, no vomiting, no diarrhea Genitourinary Male: no hematuria, no flank pain, no discharge, no urinary frequency, no urinary hesitancy Rectal: no pain, no incontinence, no bleeding Musculoskeletal: no neck stiffness, no neck pain, no arm numbness/tingling, no low back pain Integumentary: no rash, no pruritis, no redness, no sores, no wounds Neurological: no head injury, no transient paralysis, no paralysis, no weakness, no numbness, no tingling, no seizures Psychiatric: no anxiety, no change in sleep habits, no insomnia, no change in appetite, no change in libido, no disorientation Endocrine: no cold intolerance, no heat intolerance, no polyphagia, no excessive thirst, no polyuria, no nocturia Hematologic/Lymphatic: no easy bruising, no easy bleeding, no lymphadenopathy, no lymphedema Allergic/Immunologic: no allergic rhinitis, no wheezing, no persistent in fections, no anaphylaxis Exam - Constitutional Vitals: Temp Pulse Resp BP Pulse Ox 98 F 80 16 105/70 95 05/08/22 04:34 05/08/22 04:34 05/08/22 04:34 05/08/22 04:34 05/08/22 04:34 General appearance: Present: mild distress - EENT Eyes: Present: PERRL ENT: hearing intact, clear oral mucosa - Neck Neck: Present: supple, normal ROM - Respiratory Respiratory effort: normal Respiratory: bilateral: CTA - Cardiovascular Heart Sounds: Present: S1 & S2. Absent: rub, click - Extremities Extremities: pulses symmetrical, No edema Peripheral Pulses: within normal limits - Abdominal General gastrointestinal: Present: soft, non-tender, non-distended, normal bowel sounds Male genitourinary: Present: normal - Integumentary Integumentary: Present: clear, warm, dry - Musculoskeletal Musculoskeletal: gait normal, strength equal bilaterally - Psychiatric Psychiatric: appropriate mood/affect, intact judgment & insight - Neurologic Neurologic: CNII-XII intact, moves all extremities HEART Score - HEART Score Troponin: Troponin T 0.245 ng/mL (0.00-0.029) H* 05/08/22 05:58 Results - Labs CBC & Chem 7: 05/08/22 05:58 05/08/22 05:58 Labs: Abnormal lab results 05/08/22 05/08/22 Range/Units 05:58 05:58 RBC 5.09 H (3.65-5.03) M/mm3 Hct 45.8 H (35.5-45.6) % RDW 15.8 H (13.2-15.2) % Sodium 135 L (137-145) mmol/L BUN 5 L (9-20) mg/dL Glucose 107 H (75-100) mg/dL Troponin T 0.245 H* (0.00-0.029) ng/mL Total Protein 4.9 L (6.3-8.2) g/dL Albumin 3.3 L (3.9-5) g/dL Assessment and Plan - Patient Problems (1) NSTEMI (non-ST elevated myocardial infarction) Status: Acute Plan to address problem: Serial cardiac enzymes, EKG, cardiology team consulted in ED. Therapeutic anticoagulation initiated in the emergency department. Further care and evaluation as per cardiology team. (2) Angina at rest Status: Acute Plan to address problem: ACS protocol: Serial cardiac enzymes and EKG, telemetry monitoring, morphine, submental oxygen, nitro, aspirin, cardiology team consulted. (3) CHF (congestive heart failure) Status: Acute Qualifiers: Heart failure type: systolic Heart failure chronicity: acute on chronic Qualified Code(s): I50.23 - Acute on chronic systolic (congestive) heart failure Plan to address problem: Strict I's/O, renal progression, daily weight, afterload reduction, blood pressure control, echocardiogram reviewed from previous admission. Cardiology team consulted (4) Hyponatremia syndrome Status: Acute Plan to address problem: IV fluid resuscitation therapy as clinical indicated, repeat BMP in a.m. (5) Cocaine dependence Status: Acute Plan to address problem: Patient counseled regarding abstinence from cocaine use. (6) COPD (chronic obstructive pulmonary disease) Status: Acute Plan to address problem: Supplemental oxygen as clinically indicated. No acute exacerbation at this time. Continue to monitor. (7) Nicotine dependence Status: Acute Qualifiers: Nicotine product type: cigarettes Substance use status: in withdrawal Qualified Code(s): F17.213 - Nicotine dependence, cigarettes, with withdrawal Plan to address problem: Smoking cessation counseling, supportive care, behavior change counseling, +30 minutes. (8) DVT prophylaxis Status: Acute Plan to address problem: SCDs bilateral lower extremities while in bed (9) Advance care planning Status: Acute Plan to address problem: Disease education conducted, care plan discussed, diagnoses discussed, prognosis discussed, patient is full code. Patient acknowledges understanding and agreement with care plan, +30 minutes. (10) Preventative health care Status: Acute Plan to address problem: patient counseled regarding risk factor reduction, medication compliance, outpatient follow-up with primary care physician for all age and risk factor appropriate screening test. +30 minutes.
[2022-05-08] MEDS ORDERED: ACETAMINOPHEN 325 MG TAB PO PRN ×2 (12:05→12:30)
[2022-05-08] MEDS ORDERED: MORPHINE 4 MG/1 ML INJ IV PRN (12:05)
[2022-05-08] MEDS ORDERED: traMADol 50 MG TAB PO PRN (12:30)
[2022-05-08] MEDS ORDERED: NITROGLYCERIN 0.4 MG TAB SUBL SL PRN (12:30)
[2022-05-08] MEDS ORDERED: oxyCODONE /ACETAMINOPHEN 5-325MG TAB PO PRN (12:30)
--- NOTE | 2022-05-08 12:42 | Emergency Department Report ---
ED Chest Pain HPI - General Chief Complaint: Chest Pain Stated Complaint: CC BLS 1 Time Seen by Provider: 05/08/22 06:51 Source: patient, EMS Mode of arrival: Stretcher Limitations: No Limitations - History of Present Illness Initial Comments: 52-year-old with history of pulmonary embolism in the past, complains chest pain feels like chest pressure for 2 days. Patient admits to having some shortness of breath worse with exertion. Denies having any diaphoresis fever chills or cough. -: Gradual, days(s) Onset: during exertion Pain Location: substernal Pain Radiation: none Quality: tightness, aching Consistency: constant Improves With: nothing Worsens With: nothing - Related Data On Oral Contraceptives: No Previous Rx's Medication Instructions Recorded Last Taken Type Aspirin [Aspirin BABY CHEW TAB] 81 mg PO QDAY 30 Days #30 tab.chew 02/02/22 Unknown Rx AtorvaSTATin [Lipitor] 20 mg PO QHS 30 Days #30 tablet 02/02/22 Unknown Rx Rivaroxaban [Xarelto] 20 mg PO QDAY 30 Days #30 tab 02/02/22 Unknown Rx lisinopriL [Zestril TAB] 2.5 mg PO QDAY 30 Days #30 tablet 02/02/22 Unknown Rx Allergies Allergy/AdvReac Type Severity Reaction Status Date / Time No Known Allergies Allergy Unverified 01/30/22 03:19 Heart Score - HEART Score History: Moderately suspicious EKG: Non-specific Age: > 65 Risk factors: 1-2 risk factors Troponin: 1-3x normal limit HEART Score: 6 - EKG Read Time Time EKG Completed: 09:30 EKG Read Time: 09:35 ED Review of Systems ROS: Stated complaint: CC BLS 1 Other details as noted in HPI Constitutional: denies: chills, fever Eyes: denies: eye pain, eye discharge, vision change ENT: denies: ear pain, throat pain Respiratory: denies: cough, shortness of breath, wheezing Cardiovascular: chest pain, palpitations, dyspnea on exertion Endocrine: no symptoms reported Gastrointestinal: denies: abdominal pain, nausea, diarrhea Genitourinary: denies: urgency, dysuria Musculoskeletal: denies: back pain, joint swelling, arthralgia Skin: denies: rash, lesions Neurological: denies: headache, weakness, paresthesias Psychiatric: denies: anxiety, depression Hematological/Lymphatic: denies: easy bleeding, easy bruising ED Past Medical Hx - Past Medical History Hx COPD: Yes - Surgical History Hx Appendectomy: Yes (at age 11) - Social History Smoking Status: Current Every Day Smoker - Medications Home Medications: Home Medications Medication Instructions Recorded Confirmed Last Taken Type Aspirin [Aspirin BABY CHEW TAB] 81 mg PO QDAY 30 Days #30 tab.chew 02/02/22 05/09/22 Unknown Rx AtorvaSTATin [Lipitor] 20 mg PO QHS 30 Days #30 tablet 02/02/22 05/09/22 Unknown Rx Rivaroxaban [Xarelto] 20 mg PO QDAY 30 Days #30 tab 02/02/22 05/09/22 Unknown Rx lisinopriL [Zestril TAB] 2.5 mg PO QDAY 30 Days #30 tablet 02/02/22 05/09/22 Unknown Rx ED Physical Exam - General Limitations: No Limitations General appearance: alert, in no apparent distress - Head Head exam: Present: atraumatic, normocephalic - Eye Eye exam: Present: normal appearance, PERRL, EOMI Pupils: Present: normal accommodation - ENT ENT exam: Present: normal exam, normal orophraynx, mucous membranes dry - Respiratory Respiratory exam: Present: normal lung sounds bilaterally. Absent: respiratory distress, chest wall tenderness - Cardiovascular Cardiovascular Exam: Present: regular rate, normal rhythm, normal heart sounds - GI/Abdominal GI/Abdominal exam: Present: soft. Absent: distended, tenderness - Rectal Rectal exam: Present: deferred - Extremities Exam Extremities exam: Present: normal inspection, full ROM, normal capillary refill - Back Exam Back exam: Present: normal inspection - Neurological Exam Neurological exam: Present: alert, oriented X3, CN II-XII intact - Skin Skin exam: Present: warm, normal color ED Course Vital Signs 05/08/22 05/08/22 05/08/22 04:34 05:03 11:33 Temperature 98 F Pulse Rate 80 67 Respiratory 16 11 L Rate Blood Pressure 143/87 Blood Pressure 105/70 [Right] O2 Sat by Pulse 95 97 Oximetry 05/08/22 05/08/22 05/08/22 12:00 12:30 18:07 Temperature Pulse Rate 71 71 72 Respiratory 12 23 18 Rate Blood Pressure 143/87 143/87 Blood Pressure 152/96 [Right] O2 Sat by Pulse 98 98 100 Oximetry 05/08/22 18:47 Temperature Pulse Rate Respiratory Rate Blood Pressure Blood Pressure [Right] O2 Sat by Pulse 98 Oximetry MELVIN score - Melvin Score Age > 65: (0) No Aspirin use within the Past 7 Days: (0) No 3 or more CAD Risk Factors: (0) No 2 or more Angina events in past 24 hrs: (0) No Known CAD with more than 50% Stenosis: (0) No Elevated Cardiac Markers: (0) No ST Deviation Greater than 0.5mm: (0) No MELVIN Score: 0 ED Medical Decision Making - Lab Data Result diagrams: 05/09/22 05:16 05/09/22 05:16 Critical care attestation.: If time is entered above; I have spent that time in minutes in the direct care of this critically ill patient, excluding procedure time. ED Disposition Clinical Impression: Acute coronary syndrome Disposition: ADMITTED INPATIENT Is pt being admited?: Yes Condition: Serious
[2022-05-08] MEDS ORDERED: HEPARIN 10,000 UNITS/10 ML VIAL IV SCH (13:00)
[2022-05-08] MEDS ORDERED: ONDANSETRON 4 MG/2 ML INJ IV PRN (13:00)
[2022-05-08] MEDS ORDERED: HEPARIN 10,000 UNITS/10 ML VIAL IV ONE (13:00)
[2022-05-08] MEDS ORDERED: MORPHINE 2 MG/1 ML INJ IV PRN (13:00)
[2022-05-08] MEDS ORDERED: ALBUTEROL 2.5 MG/3 ML NEBU IH PRN (13:00)
[2022-05-08 13:19] LABS: Hematocrit 47.3 % (35.5-45.6); Hemoglobin 15.4 gm/dl (11.8-15.2)
[2022-05-08 13:39] LABS: INR 0.92 (0.87-1.13); Partial Thromboplastin Time 26.4 Sec. (24.2-36.6)
[2022-05-08] MEDS ORDERED: HEPARIN BOLUS 10,000 UNIT/10 ML VIAL IV NR (16:00)
[2022-05-08] MEDS ORDERED: HEPARIN/ 0.45% NACL DRIP 25,000 UNIT/250 ML BAG IV SCH (16:00)
--- NOTE | 2022-05-08 16:13 | Consultation ---
History of Present Illness Consult date: 05/08/22 Requesting physician: LONG MOROCHO Consult reason: chest pain History of present illness: Patient is a 52-year-old male with a past medical history of HFrEF, COPD, PE(on Xarelto as an outpatient), cocaine dependence, history of tobacco use who presented to the ED today for complaint of chest pain x2 days. Patient describes chest pain as a throbbing sensation that he states was initially 8 out of 10 but is now subsided to 6 out of 10. Patient states pain is worse with exertion relieved with rest and associated with shortness of breath. Patient states he did have some right arm numbness associated with pain however has since been relieved. Patient denies nausea, vomiting, diaphoresis, palpitatio ns, or lightheadedness. Patient reports compliance with medications. In the ED patient was found to have elevated troponins consistent with NSTEMI. Patient was previously seen by our practice in January 2022 however did not follow-up as an outpatient. Ischemic eval was deferred at that time due to patient submassive PE. Cardiology is consulted for angina/CHF. Past History Past Medical History: COPD, heart failure, hypertension, pulmonary embolism Past Surgical History: appendectomy Social history: single, smoking, other (crack/cocaine use) Family history: CAD, hypertension Medications and Allergies Allergies Allergy/AdvReac Type Severity Reaction Status Date / Time No Known Allergies Allergy Unverified 01/30/22 03:19 Home Medications Medication Instructions Recorded Confirmed Last Taken Type Aspirin [Aspirin BABY CHEW TAB] 81 mg PO QDAY 30 Days #30 tab.chew 02/02/22 Unk nown Rx AtorvaSTATin [Lipitor] 20 mg PO QHS 30 Days #30 tablet 02/02/22 Unknown Rx Rivaroxaban [Xarelto] 15 mg PO QDAY 21 Days #42 tablet 02/02/22 Unknown Rx Rivaroxaban [Xarelto] 20 mg PO QDAY 30 Days #30 tab 02/02/22 Unknown Rx lisinopriL [Zestril TAB] 2.5 mg PO QDAY 30 Days #30 tablet 02/02/22 Unknown Rx Active Meds: Active Medications Acetaminophen (Acetaminophen 325 Mg Tab) 650 mg PO Q4H PRN PRN Reason: Pain MILD(1-3)/Fever >100.5/GALAVIZ Albuterol (Albuterol 2.5 Mg/3 Ml Nebu) 2.5 mg IH Q4HRT PRN PRN Reason: Shortness Of Breath Aspirin (Aspirin 81 Mg Tab Chew) 81 mg PO QDAY ERICK Atorvastatin Calcium (Atorvastatin 20 Mg Tab) 40 mg PO QHS ERICK Heparin Sodium (Porcine) (Heparin Bolus 10,000 Unit/10 Ml Vial) 4,000 unit 60 unit/kg (4000 unit) IV ONCE NR Stop: 05/08/22 16:30 Sodium Chloride (Nacl 0.9% 500 Ml) 500 mls @ 50 mls/hr IV DIRECT ERICK Stop: 05/09/22 01:59 Heparin Sodium/Sodium Chloride (Heparin/ 0.45% Nacl-25,000 Unit/250 Ml) 25,000 unit in 250 mls @ 8.981 mls/hr IV TITRATE ERICK; Protocol Lisinopril (Lisinopril 5 Mg Tab) 2.5 mg PO QDAY ERICK Morphine Sulfate (Morphine 2 Mg/1 Ml Inj) 2 mg IV Q8H PRN PRN Reason: Pain , Severe (7-10) Nitroglycerin (Nitroglycerin 0.4 Mg Tab Subl) 0.4 mg SL Q5M PRN PRN Reason: Chest Pain Ondansetron HCl (Ondansetron 4 Mg/2 Ml Inj) 4 mg IV Q8H PRN PRN Reason: Nausea And Vomiting Oxycodone/Acetaminophen (Oxycodone /Acetaminophen 5-325mg Tab) 1 tab PO Q6H PRN PRN Reason: Pain, Moderate (4-6) Sodium Chloride (Sodium Chloride 0.9% 10 Ml Flush Syringe) 10 ml IV BID [facility] Last Admin: 05/08/22 15:24 Dose: 10 ml Sodium Chloride (Sodium Chloride 0.9% 10 Ml Flush Syringe) 10 ml IV PRN PRN PRN Reason: LINE FLUSH Sodium Chloride (Sodium Chloride 0.9% 10 Ml Flush Syringe) 10 ml IV PRN PRN PRN Reason: LINE FLUSH Tramadol HCl (Tramadol 50 Mg Tab) 50 mg PO Q6H PRN PRN Reason: Pain, Moderate (4-6) Review of Systems Constitutional: no weight loss, no weight gain, no fever, no chills Ears, nose, mouth and throat: no nasal discharge, no sinus pressure, no sinus pain Cardiovascular: chest pain, shortness of breath Respiratory: shortness of breath Gastrointestinal: no abdominal pain, no nausea, no vomiting Musculoskeletal: arm numbness/tingling, no neck stiffness, no neck pain Integumentary: no rash, no pruritis, no redness Neurological: no head injury, no transient paralysis Psychiatric: no anxiety, no memory loss Endocrine: no cold intolerance, no heat intolerance Hematologic/Lymphatic: no easy bruising, no easy bleeding Physical Examination Vital Signs Temp Pulse Resp BP Pulse Ox 98 F 80 16 105/70 95 05/08/22 04:34 05/08/22 04:34 05/08/22 04:34 05/08/22 04:34 05/08/22 04:34 General appearance: no acute distress Neck: Positive: trachea midline Cardiac: Positive: Reg Rate and Rhythm Lungs: Positive: Rhonchi Neuro: Positive: Grossly Intact Abdomen: Positive: Soft Skin: Negative: Rash, Suspicious Lesions, Ulceration Extremities: Present: upper extr. pulses. Absent: edema Results 05/08/22 11:43 05/08/22 05:58 Cardiac Enzymes 05/08/22 Range/Units 05:58 AST 26 (5-40) units/L Coagulation 05/08/22 Range/Units 11:43 PT 13.3 (12.2-14.9) Sec. INR 0.92 (0.87-1.13) APTT 26.4 (24.2-36.6) Sec. Lipids 05/08/22 Range/Units 05:58 Triglycerides 84 (2-149) mg/dL Cholesterol 191 (50-199) mg/dL HDL Cholesterol 48 (40-59) mg/dL Cholesterol/HDL Ratio 3.97 % CBC 05/08/22 05/08/22 Range/Units 05:58 11:43 WBC 7.0 (4.5-11.0) K/mm3 RBC 5.09 H (3.65-5.03) M/mm3 Hgb 15.0 15.4 H (11.8-15.2) gm/dl Hct 45.8 H 47.3 H (35.5-45.6) % Plt Count 179 183 (140-440) K/mm3 Comprehensive Metabolic Panel 05/08/22 Range/Units 05:58 Sodium 135 L (137-145) mmol/L Potassium 4.5 (3.6-5.0) mmol/L Chloride 102.4 (98-107) mmol/L Carbon Dioxide 23 (22-30) mmol/L BUN 5 L (9-20) mg/dL Creatinine 1.0 (0.8-1.3) mg/dL Glucose 107 H (75-100) mg/dL Calcium 8.4 (8.4-10.2) mg/dL AST 26 (5-40) units/L ALT 11 (7-56) units/L Alkaline Phosphatase 75 (35-129) units/L Total Protein 4.9 L (6.3-8.2) g/dL Albumin 3.3 L (3.9-5) g/dL - Imaging and Cardiology Echo: report reviewed Cardiac cath: pending EKG interpretations - Telemetry EKG Rhythm: Sinus Rhythm - EKG Sinus rhythms and dysrhythmias: sinus rhythm Repolarization changes or abnormalities: ST or T wave suggestive of ischemia Assessment and Plan Patient is a 52-year-old male with a past medical history of HFrEF, COPD, PE(on Xarelto as an outpatient), cocaine dependence, history of tobacco use who presented to the ED today for complaint of chest pain x2 daysNSTEMI HFrEF (compensated) Cardiomyopathy COPD History of tobacco use Cocaine use H/o PE on Xarelto as outpatient Echo 01/30/2022-EF 35 to 40%. Hypokinesis in the basal inferior septal wall and lateral wall. Mild diastolic dysfunction is present impaired laxation pattern. No pericardial effusion. Right ventricle is mildly dilated. Right ventricle systolic function is mildly reduced. Plan: EKG shows sinus rhythm 68 abnormal T anterior lateral leads. No acute ischemic changes Troponin is noted to be elevated and consistent with NSTEMI Due to troponin elevation, EKG changes, and reported chest pain we will plan for cardiac cath in the a.m. Patient to be n.p.o. after midnight Initiate aspirin, heparin drip, atorvastatin 40 mg p.o. nightly No beta-blockers due to cocaine use Plan of care discussed with patient who verbalized understanding and acknowledgment Patient seen in conjunction with Dr. Mcconnell who agrees with this plan of care - Patient Problems (1) COPD (chronic obstructive pulmonary disease) Current Visit: No Status: Acute (2) Cardiomyopathy Current Visit: No Status: Acute (3) Cocaine dependence Current Visit: No Status: Acute (4) HFrEF (heart failure with reduced ejection fraction) Current Visit: No Status: Acute (5) NSTEMI (non-ST elevated myocardial infarction) Current Visit: No Status: Acute
[2022-05-08 17:58] LABS: Hematocrit 48.4 % (35.5-45.6); Hemoglobin 15.5 gm/dl (11.8-15.2)
[2022-05-08 18:49] LABS: INR 0.89 (0.87-1.13)
[2022-05-08 18:50] LABS: Partial Thromboplastin Time 26.2 Sec. (24.2-36.6)
[2022-05-08] MEDS: SODIUM CHLORIDE 0.9% 500 ML 500 ML IV SCH (23:15)
[2022-05-09 02:17] LABS: Amphetamine Screen,Urine PRESUMPTIVE NEGATIVE; Benzodiazepines Screen,Urine PRESUMPTIVE NEGATIVE; Cannabinoid Screen,Urine PRESUMPTIVE NEGATIVE; Cocaine Screen,Urine PRESUMPTIVE POSITIVE; Methadone Screen,Urine PRESUMPTIVE NEGATIVE; Opiate Screen,Urine PRESUMPTIVE NEGATIVE
[2022-05-09 06:27] LABS: Basophils # (Auto) 0.1 K/mm3 (0.0-0.1); Basophils % (Auto) 0.7 % (0.0-1.8); Eosinophils # (Auto) 0.4 K/mm3 (0.0-0.4); Hematocrit 45.5 % (35.5-45.6); Hemoglobin 15.1 gm/dl (11.8-15.2); Lymphocytes # (Auto) 1.8 K/mm3 (1.2-5.4); Lymphocytes % (Auto) 25.5 % (13.4-35.0); Mean Corpuscular HGB Conc 33 % (32-34); Mean Corpuscular Volume 90 fl (84-94); Monocytes # (Auto) 0.6 K/mm3 (0.0-0.8); Monocytes % (Auto) 9.2 % (0.0-7.3); Platelet Count 190 K/mm3 (140-440); Red Blood Count 5.08 M/mm3 (3.65-5.03); Red Cell Distribution Width 15.3 % (13.2-15.2)
[2022-05-09 06:33] LABS: INR 0.99 (0.87-1.13)
[2022-05-09 06:40] LABS: BUN/Creatinine Ratio 10; Blood Urea Nitrogen 8 mg/dL (9-20); Calcium 8.3 mg/dL (8.4-10.2); Hemolysis Index 5
[2022-05-09] MEDS ORDERED: ASPIRIN 81 MG TAB CHEW ONE (07:50)
[2022-05-09] MEDS ORDERED: SODIUM CHLORIDE 0.9% 500 ML 500 ML IV SCH (08:00)
[2022-05-09] MEDS: ASPIRIN 81 MG TAB CHEW PO SCH ×2 (08:03→18:45)
[2022-05-09] MEDS ORDERED: HEPARIN/NS 5000 UNIT/500ML 500 ML IR ONE (08:03)
[2022-05-09] MEDS ORDERED: SODIUM CHLORIDE IRRI 500 ML 500 ML IR ONE (08:05)
[2022-05-09] MEDS: fentaNYL 100 MCG/2 ML INJ ONE ×3 (08:27→10:15)
[2022-05-09] MEDS: MIDAZOLAM 2 MG/2 ML INJ ONE ×2 (08:28→09:44)
[2022-05-09] MEDS: LIDOCAINE (2%) 20 MG/1 ML VIAL 50 ML MDV INFILTRATI ONE ×2 (08:28→09:45)
[2022-05-09] MEDS: VERAPAMIL 5 MG/2 ML INJ ONE ×2 (08:28→09:47)
[2022-05-09] MEDS: HEPARIN 10,000 UNITS/10 ML VIAL ONE ×3 (08:29→09:54)
[2022-05-09] MEDS: SODIUM CHLORIDE 0.9% 500 ML 500 ML IV SCH (08:30)
[2022-05-09] MEDS: NITROGLYCERIN SYRINGE 3 ML ONE ×2 (08:30→09:47)
--- NOTE | 2022-05-09 09:29 | Electrocardiograph Report ---
[facility] Test Date: 2022-05-08 Test Time: 11:00:45 Pat Name: KAREN LAL Department: Room: A452 Gender: M [employer]: MIRTHA : 1970 Requested By: VIKAS BROCK Order Number: [id number] Reading MD: Yoni Mcconnell Measurements Intervals [place] Rate: 68 P: 52 CO: 152 QRS: -39 QRSD: 85 T: 264 QT: 442 QTc: 469 Interpretive Statements Sinus rhythm t wave inversion inferior leads Abnrm T, consider ischemia, anterolateral lds Compared to ECG 01/31/2022 07:07:42 Possible ischemia now present Ventricular premature complex(es) no longer present Electronically Signed On 05-09-2022 9:29:26 EDT by Yoni Mcconnell
--- NOTE | 2022-05-09 09:36 | Electrocardiograph Report ---
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
[2022-05-09] MEDS ORDERED: ALUM-MAG HYDROXIDE-SIMETHICONE 200-200-20MG/5ML ORAL LIQD 30 ML ONE (10:10)
[2022-05-09] MEDS ORDERED: CLOPIDOGREL 300 MG TAB ONE (10:10)
--- NOTE | 2022-05-09 12:26 | Progress Note ---
Assessment and Plan Patient is a 52-year-old male with a past medical history of HFrEF, COPD, PE(on Xarelto as an outpatient), cocaine dependence, history of tobacco use who presented to the ED today for complaint of chest pain x2 daysNSTEMI HFrEF (compensated) Cardiomyopathy COPD History of tobacco use Cocaine use H/o PE on Xarelto as outpatient Echo 01/30/2022-EF 35 to 40%. Hypokinesis in the basal inferior septal wall and lateral wall. Mild diastolic dysfunction is present impaired laxation pattern. No pericardial effusion. Right ventricle is mildly dilated. Right ventricle systolic function is mildly reduced. Plan: Patient for cardiac catheterization this a.m. Patient underwent PCI of RCA. See cath report for full details Patient to be on DAPT therapy with aspirin, Plavix, and warfarin for anticoagulation x1 month After 1 month stop aspirin and patient to be on Plavix and warfarin Patient and family member who is at bedside report patient has not been taking his Xarelto as an outpatient due to financial burden.Will initiate warfarin for anticoagulation. No indication for Lovenox bridge therapy at this time as per CTA patient no longer has PE Continue atorvastatin and lisinopril No beta-blockers due to cocaine use and soft BP Upon discharge patient will be set up to have labs and INR checked in our office as an outpatient Stressed the importance of medication compliance, diet compliance, hospital follow-up, and cessation of substance abuse. Both patient and family member verbalized understanding and agreement Patient seen in conjunction with Dr. Mcconnell who agrees with this plan of care - Patient Problems (1) COPD (chronic obstructive pulmonary disease) Current Visit: No Status: Acute (2) Cardiomyopathy Current Visit: No Status: Acute (3) Cocaine dependence Current Visit: No Status: Acute (4) HFrEF (heart failure with reduced ejection fraction) Current Visit: No Status: Acute (5) NSTEMI (non-ST elevated myocardial infarction) Current Visit: No Status: Acute Subjective Date of service: 05/09/22 Principal diagnosis: NSTEMI Interval history: Patient for cardiac cath this a.m. Objective Vital Signs Temp Pulse Resp BP BP Pulse Ox 05/09/22 11:56 97.9 F 73 16 124/73 93 05/09/22 11:30 71 22 125/85 95 05/09/22 11:15 84 25 H 131/80 95 05/09/22 11:00 71 16 114/81 94 09/21/22 10:45 84 20 116/80 95 05/09/22 10:30 97.8 F 71 15 137/89 94 05/09/22 05:46 98.9 F 107 H 18 130/87 97 05/09/22 01:56 97 05/09/22 01:11 99.0 F 83 20 125/75 97 05/08/22 22:50 98.7 F 81 20 122/68 97 05/08/22 18:47 98 05/08/22 18:07 72 18 152/96 100 05/08/22 12:30 71 23 143/87 98 - Physical Examination General: No Apparent Distress HEENT: Positive: PERRL Neck: Positive: trachea midline Cardiac: Positive: Reg Rate and Rhythm Lungs: Positive: Normal Breath Sounds Neuro: Positive: Grossly Intact Abdomen: Positive: Soft Skin: Negative: Rash, Suspicious Lesions, Ulceration Extremities: Present: upper extr. pulses. Absent: edema - Labs and Meds Coagulation 05/08/22 05/08/22 05/09/22 Range/Units 11:43 16:42 05:16 PT 13.3 13.0 14.2 (12.2-14.9) Sec. INR 0.92 0.89 0.99 (0.87-1.13) APTT 26.4 26.2 (24.2-36.6) Sec. CBC 05/08/22 05/08/22 05/09/22 Range/Units 11:43 16:42 05:16 WBC 6.9 (4.5-11.0) K/mm3 RBC 5.08 H (3.65-5.03) M/mm3 Hgb 15.4 H 15.5 H 15.1 (11.8-15.2) gm/dl Hct 47.3 H 48.4 H 45.5 (35.5-45.6) % Plt Count 183 197 190 (140-440) K/mm3 Lymph # (Auto) 1.8 (1.2-5.4) K/mm3 [place] # (Auto) 0.6 (0.0-0.8) K/mm3 Eos # (Auto) 0.4 (0.0-0.4) K/mm3 Baso # (Auto) 0.1 (0.0-0.1) K/mm3 Comprehensive Metabolic Panel 05/09/22 Range/Units 05:16 Sodium 142 D (137-145) mmol/L Potassium 4.2 (3.6-5.0) mmol/L Chloride 108.1 H (98-107) mmol/L Carbon Dioxide 23 (22-30) mmol/L BUN 8 L (9-20) mg/dL Creatinine 0.8 (0.8-1.3) mg/dL Glucose 88 (75-100) mg/dL Calcium 8.3 L (8.4-10.2) mg/dL - Imaging and Cardiology Echo: report reviewed Cardiac cath: pending - Telemetry EKG Rhythm: Sinus Rhythm - EKG Sinus rhythms and dysrhythmias: sinus rhythm Repolarization changes or abnormalities: ST or T wave suggestive of ischemia
--- NOTE | 2022-05-09 13:02 | Progress Note ---
Hospitalist Physical - Constitutional Vitals: Temp Pulse Resp BP Pulse Ox 97.9 F 73 16 124/73 93 05/09/22 11:56 05/09/22 11:56 05/09/22 11:56 05/09/22 11:56 05/09/22 11:56 General appearance: Present: no acute distress HEART Score - HEART Score EKG: Non-specific Age: > 65 Risk factors: 1-2 risk factors Troponin: Troponin T 1.140 ng/mL (0.00-0.029) H* 05/08/22 16:42 Troponin: 1-3x normal limit Results - Labs CBC & Chem 7: 05/09/22 05:16 05/09/22 05:16 Labs: Laboratory Last Values WBC 6.9 K/mm3 (4.5-11.0) 05/09/22 05:16 RBC 5.08 M/mm3 (3.65-5.03) H 05/09/22 05:16 Hgb 15.1 gm/dl (11.8-15.2) 05/09/22 05:16 Hct 45.5 % (35.5-45.6) 05/09/22 05:16 MCV 90 fl (84-94) 05/09/22 05:16 MCH 30 pg (28-32) 05/09/22 05:16 MCHC 33 % (32-34) 05/09/22 05:16 RDW 15.3 % (13.2-15.2) H 05/09/22 05:16 Plt Count 190 K/mm3 (140-440) 05/09/22 05:16 Lymph % (Auto) 25.5 % (13.4-35.0) 05/09/22 05:16 [place] % (Auto) 9.2 % (0.0-7.3) H 05/09/22 05:16 Eos % (Auto) 6.0 % (0.0-4.3) H 05/09/22 05:16 Baso % (Auto) 0.7 % (0.0-1.8) 05/09/22 05:16 Lymph # (Auto) 1.8 K/mm3 (1.2-5.4) 05/09/22 05:16 [place] # (Auto) 0.6 K/mm3 (0.0-0.8) 05/09/22 05:16 Eos # (Auto) 0.4 K/mm3 (0.0-0.4) 05/09/22 05:16 Baso # (Auto) 0.1 K/mm3 (0.0-0.1) 05/09/22 05:16 Seg Neutrophils % 58.6 % (40.0-70.0) 05/09/22 05:16 Seg Neutrophils # 4.0 K/mm3 (1.8-7.7) 05/09/22 05:16 PT 14.2 Sec. (12.2-14.9) 05/09/22 05:16 INR 0.99 (0.87-1.13) 05/09/22 05:16 APTT 26.2 Sec. (24.2-36.6) 05/08/22 16:42 Heparin Anti-Xa Level 0.15 U.I./ml (0.3-0.7) L 05/09/22 05:16 Sodium 142 mmol/L (137-145) D 05/09/22 05:16 Potassium 4.2 mmol/L (3.6-5.0) 05/09/22 05:16 Chloride 108.1 mmol/L (98-107) H 05/09/22 05:16 Carbon Dioxide 23 mmol/L (22-30) 05/09/22 05:16 Anion Gap 15 mmol/L 05/09/22 05:16 BUN 8 mg/dL (9-20) L 05/09/22 05:16 Creatinine 0.8 mg/dL (0.8-1.3) 05/09/22 05:16 Estimated GFR > 60 ml/min 05/09/22 05:16 BUN/Creatinine Ratio 10 % 05/09/22 05:16 Glucose 88 mg/dL (75-100) 05/09/22 05:16 Calcium 8.3 mg/dL (8.4-10.2) L 05/09/22 05:16 Total Bilirubin < 0.20 mg/dL (0.1-1.2) 05/08/22 05:58 AST 26 units/L (5-40) 05/08/22 05:58 ALT 11 units/L (7-56) 05/08/22 05:58 Alkaline Phosphatase 75 units/L (35-129) 05/08/22 05:58 Troponin T 1.140 ng/mL (0.00-0.029) H* 05/08/22 16:42 Total Protein 4.9 g/dL (6.3-8.2) L 05/08/22 05:58 Albumin 3.3 g/dL (3.9-5) L 05/08/22 05:58 Albumin/Globulin Ratio 2.1 % 05/08/22 05:58 Triglycerides 84 mg/dL (2-149) 05/08/22 05:58 Cholesterol 191 mg/dL (50-199) 05/08/22 05:58 LDL Cholesterol Direct 129 mg/dL (50-130) 05/08/22 05:58 HDL Cholesterol 48 mg/dL (40-59) 05/08/22 05:58 Cholesterol/HDL Ratio 3.97 % 05/08/22 05:58 Urine Opiates Screen Presumptive negative 05/09/22 01:04 Urine Methadone Screen Presumptive negative 05/09/22 01:04 Ur Barbiturates Screen Presumptive negative 05/09/22 01:04 Ur Phencyclidine Scrn Presumptive negative 05/09/22 01:04 Ur Amphetamines Screen Presumptive negative 05/09/22 01:04 U Benzodiazepines Scrn Presumptive negative 05/09/22 01:04 Urine Cocaine Screen Presumptive positive 05/09/22 01:04 U Marijuana (THC) Screen Presumptive negative 05/09/22 01:04 Drugs of Abuse Note Disclamer 05/09/22 01:04 [place]/IV: Voiding Method Urinal Active Medications - Current Medications Current Medications: Generic Name Dose Route Start Last Admin Trade Name Freq PRN Reason Stop Dose Admin Acetaminophen 650 mg 05/08/22 12:30 Acetaminophen 325 Mg Tab PO Q4H PRN Pain MILD(1-3)/Fever >100.5/GALAVIZ Albuterol 2.5 mg 05/08/22 13:00 Albuterol 2.5 Mg/3 Ml Nebu IH Q4HRT PRN Shortness Of Breath Aspirin 81 mg 05/09/22 10:00 05/09/22 08:03 Aspirin 81 Mg Tab Chew PO 81 mg QDAY ERICK Administration Atorvastatin Calcium 40 mg 05/08/22 22:00 05/08/22 22:58 Atorvastatin 20 Mg Tab PO 40 mg QHS ERICK Administration Clopidogrel Bisulfate 75 mg 05/10/22 10:00 Clopidogrel 75 Mg Tab PO QDAY [facility] Sodium Chloride 500 mls @ 50 mls/hr 05/09/22 08:00 05/09/22 08:03 Nacl 0.9% 500 Ml IV 50 mls/hr DIRECT ERICK Administration Lisinopril 2.5 mg 05/09/22 10:00 Lisinopril 5 Mg Tab PO QDAY [facility] Morphine Sulfate 2 mg 05/08/22 13:00 Morphine 2 Mg/1 Ml Inj IV Q8H PRN Pain , Severe (7-10) Nitroglycerin 0.4 mg 05/08/22 12:30 Nitroglycerin 0.4 Mg Tab Subl SL Q5M PRN Chest Pain Ondansetron HCl 4 mg 05/08/22 13:00 Ondansetron 4 Mg/2 Ml Inj IV Q8H PRN Nausea And Vomiting Oxycodone/Acetaminophen 1 tab 05/08/22 12:30 Oxycodone /Acetaminophen 5-325mg Tab PO Q6H PRN Pain, Moderate (4-6) Sodium Chloride 10 ml 05/08/22 13:00 05/08/22 22:59 Sodium Chloride 0.9% 10 Ml Flush Syringe IV 10 ml BID ERICK Administration Sodium Chloride 10 ml 05/08/22 13:00 Sodium Chloride 0.9% 10 Ml Flush Syringe IV PRN PRN LINE FLUSH Sodium Chloride 10 ml 05/08/22 12:30 Sodium Chloride 0.9% 10 Ml Flush Syringe IV PRN PRN LINE FLUSH Tramadol HCl 50 mg 05/08/22 12:30 Tramadol 50 Mg Tab PO Q6H PRN Pain, Moderate (4-6) Warfarin Sodium 5 mg 05/09/22 17:00 Warfarin 5 Mg Tab PO 05/10/22 16:59 DAILY@1700 [facility] Protocol
[2022-05-09] MEDS ORDERED: WARFARIN 5 MG TAB PO SCH (17:00)
[2022-05-09] MEDS: LISINOPRIL 5 MG TAB PO SCH (18:45)
[2022-05-10 05:41] LABS: Hematocrit 47.1 % (35.5-45.6); Hemoglobin 15.5 gm/dl (11.8-15.2)
[2022-05-10 05:47] LABS: INR 0.87 (0.87-1.13)
--- NOTE | 2022-05-10 08:52 | Progress Note ---
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 Patient is on DAPT therapy with aspirin, Plavix, and warfarin for anticoagulation x1 month After 1 month stop aspirin and patient to be on Plavix and warfarin Patient and family member who is at bedside report patient has not been taking his Xarelto as an outpatient due to financial burden.Will initiate warfarin for anticoagulation. No indication for Lovenox bridge therapy at this time as per CTA patient no longer has PE -- CHF (congestive heart failure) Strict I's/O, renal progression, daily weight, afterload reduction, blood pressure control, echocardiogram reviewed from previous admission. Cardiology team consulted --History of PE; On chronic anticoagulation CTA chest done during this admission negative for PE -Hyponatremia syndrome IV fluid resuscitation therapy as clinical indicated, repeat BMP in a.m. (5) Cocaine dependence Status: Acute Plan to address problem: Patient counseled regarding abstinence from cocaine use. (6) COPD (chronic obstructive pulmonary disease) Status: Acute Plan to address problem: Supplemental oxygen as clinically indicated. No acute exacerbation at this time. Continue to monitor. (7) Nicotine dependence Status: Acute Qualifiers: Nicotine product type: cigarettes Substance use status: in withdrawal Qualified Code(s): F17.213 - Nicotine dependence, cigarettes, with withdrawal Plan to address problem: Smoking cessation counseling, supportive care, behavior change counseling, +30 minutes. (8) DVT prophylaxis Status: Acute Plan to address problem: SCDs bilateral lower extremities while in bed (9) Advance care planning Status: Acute Plan to address problem: Disease education conducted, care plan discussed, diagnoses discussed, prognosis discussed, patient is full code. Patient acknowledges understanding and agreement with care plan, +30 minutes. (10) Preventative health care Status: Acute Plan to address problem: patient counseled regarding risk factor reduction, medication compliance, outpatient follow-up with primary care physician for all age and risk factor appropriate screening test. +30 minutes. Hospitalist Physical - Constitutional Vitals: Temp Pulse Resp BP Pulse Ox 98.1 F 77 18 102/66 100 05/10/22 07:27 05/10/22 07:27 05/10/22 07:27 05/10/22 07:27 05/10/22 08:45 General appearance: Present: no acute distress HEART Score - HEART Score EKG: Non-specific Age: > 65 Risk factors: 1-2 risk factors Troponin: Troponin T 1.140 ng/mL (0.00-0.029) H* 05/08/22 16:42 Troponin: 1-3x normal limit Results - Labs CBC & Chem 7: 05/10/22 04:23 05/10/22 04:23 Labs: Laboratory Last Values WBC 6.9 K/mm3 (4.5-11.0) 05/09/22 05:16 RBC 5.08 M/mm3 (3.65-5.03) H 05/09/22 05:16 Hgb 15.5 gm/dl (11.8-15.2) H 05/10/22 04:23 Hct 47.1 % (35.5-45.6) H 05/10/22 04:23 MCV 90 fl (84-94) 05/09/22 05:16 MCH 30 pg (28-32) 05/09/22 05:16 MCHC 33 % (32-34) 05/09/22 05:16 RDW 15.3 % (13.2-15.2) H 05/09/22 05:16 Plt Count 199 K/mm3 (140-440) 05/10/22 04:23 Lymph % (Auto) 25.5 % (13.4-35.0) 05/09/22 05:16 [place] % (Auto) 9.2 % (0.0-7.3) H 05/09/22 05:16 Eos % (Auto) 6.0 % (0.0-4.3) H 05/09/22 05:16 Baso % (Auto) 0.7 % (0.0-1.8) 05/09/22 05:16 Lymph # (Auto) 1.8 K/mm3 (1.2-5.4) 05/09/22 05:16 [place] # (Auto) 0.6 K/mm3 (0.0-0.8) 05/09/22 05:16 Eos # (Auto) 0.4 K/mm3 (0.0-0.4) 05/09/22 05:16 Baso # (Auto) 0.1 K/mm3 (0.0-0.1) 05/09/22 05:16 Seg Neutrophils % 58.6 % (40.0-70.0) 05/09/22 05:16 Seg Neutrophils # 4.0 K/mm3 (1.8-7.7) 05/09/22 05:16 PT 12.8 Sec. (12.2-14.9) 05/10/22 04:23 INR 0.87 (0.87-1.13) 05/10/22 04:23 APTT 26.2 Sec. (24.2-36.6) 05/08/22 16:42 Heparin Anti-Xa Level 0.15 U.I./ml (0.3-0.7) L 05/09/22 05:16 Sodium 142 mmol/L (137-145) D 05/09/22 05:16 Potassium 4.2 mmol/L (3.6-5.0) 05/09/22 05:16 Chloride 108.1 mmol/L (98-107) H 05/09/22 05:16 Carbon Dioxide 23 mmol/L (22-30) 05/09/22 05:16 Anion Gap 15 mmol/L 05/09/22 05:16 BUN 8 mg/dL (9-20) L 05/09/22 05:16 Creatinine 0.7 mg/dL (0.8-1.3) L 05/10/22 04:23 Estimated GFR > 60 ml/min 05/10/22 04:23 BUN/Creatinine Ratio 10 % 05/09/22 05:16 Glucose 88 mg/dL (75-100) 05/09/22 05:16 Calcium 8.3 mg/dL (8.4-10.2) L 05/09/22 05:16 Total Bilirubin < 0.20 mg/dL (0.1-1.2) 05/08/22 05:58 AST 26 units/L (5-40) 05/08/22 05:58 ALT 11 units/L (7-56) 05/08/22 05:58 Alkaline Phosphatase 75 units/L (35-129) 05/08/22 05:58 Troponin T 1.140 ng/mL (0.00-0.029) H* 05/08/22 16:42 Total Protein 4.9 g/dL (6.3-8.2) L 05/08/22 05:58 Albumin 3.3 g/dL (3.9-5) L 05/08/22 05:58 Albumin/Globulin Ratio 2.1 % 05/08/22 05:58 Triglycerides 84 mg/dL (2-149) 05/08/22 05:58 Cholesterol 191 mg/dL (50-199) 05/08/22 05:58 LDL Cholesterol Direct 129 mg/dL (50-130) 05/08/22 05:58 HDL Cholesterol 48 mg/dL (40-59) 05/08/22 05:58 Cholesterol/HDL Ratio 3.97 % 05/08/22 05:58 Urine Opiates Screen Presumptive negative 05/09/22 01:04 Urine Methadone Screen Presumptive negative 05/09/22 01:04 Ur Barbiturates Screen Presumptive negative 05/09/22 01:04 Ur Phencyclidine Scrn Presumptive negative 05/09/22 01:04 Ur Amphetamines Screen Presumptive negative 05/09/22 01:04 U Benzodiazepines Scrn Presumptive negative 05/09/22 01:04 Urine Cocaine Screen Presumptive positive 05/09/22 01:04 U Marijuana (THC) Screen Presumptive negative 05/09/22 01:04 Drugs of Abuse Note Disclamer 05/09/22 01:04 [place]/IV: Voiding Method Urinal Active Medications - Current Medications Current Medications: Generic Name Dose Route Start Last Admin Trade Name Freq PRN Reason Stop Dose Admin Acetaminophen 650 mg 05/08/22 12:30 Acetaminophen 325 Mg Tab PO Q4H PRN Pain MILD(1-3)/Fever >100.5/GALAVIZ Albuterol 2.5 mg 05/08/22 13:00 Albuterol 2.5 Mg/3 Ml Nebu IH Q4HRT PRN Shortness Of Breath Aspirin 81 mg 05/09/22 10:00 05/09/22 18:45 Aspirin 81 Mg Tab Chew PO Not Given QDAY ERICK Atorvastatin Calcium 40 mg 05/08/22 22:00 05/09/22 21:04 Atorvastatin 20 Mg Tab PO 40 mg QHS ERICK Administration Clopidogrel Bisulfate 75 mg 05/10/22 10:00 Clopidogrel 75 Mg Tab PO QDAY ERICK Sodium Chloride 500 mls @ 50 mls/hr 05/09/22 08:00 05/09/22 08:03 Nacl 0.9% 500 Ml IV 50 mls/hr DIRECT ERICK Administration Lisinopril 2.5 mg 05/09/22 10:00 05/09/22 18:45 Lisinopril 5 Mg Tab PO Not Given QDAY [facility] Morphine Sulfate 2 mg 05/08/22 13:00 Morphine 2 Mg/1 Ml Inj IV Q8H PRN Pain , Severe (7-10) Nitroglycerin 0.4 mg 05/08/22 12:30 Nitroglycerin 0.4 Mg Tab Subl SL Q5M PRN Chest Pain Ondansetron HCl 4 mg 05/08/22 13:00 Ondansetron 4 Mg/2 Ml Inj IV Q8H PRN Nausea And Vomiting Oxycodone/Acetaminophen 1 tab 05/08/22 12:30 Oxycodone /Acetaminophen 5-325mg Tab PO Q6H PRN Pain, Moderate (4-6) Sodium Chloride 10 ml 05/08/22 13:00 05/09/22 21:04 Sodium Chloride 0.9% 10 Ml Flush Syringe IV 10 ml BID ERICK Administration Sodium Chloride 10 ml 05/08/22 13:00 Sodium Chloride 0.9% 10 Ml Flush Syringe IV PRN PRN LINE FLUSH Sodium Chloride 10 ml 05/08/22 12:30 Sodium Chloride 0.9% 10 Ml Flush Syringe IV PRN PRN LINE FLUSH Tramadol HCl 50 mg 05/08/22 12:30 Tramadol 50 Mg Tab PO Q6H PRN Pain, Moderate (4-6) Warfarin Sodium 5 mg 05/09/22 17:00 05/09/22 21:03 Warfarin 5 Mg Tab PO 05/10/22 16:59 5 mg DAILY@1700 [facility] Administration Protocol
[2022-05-10] MEDS ORDERED: CLOPIDOGREL 75 MG TAB PO SCH (10:00)
[2022-05-10] MEDS: ASPIRIN 81 MG TAB CHEW PO SCH (10:09)
[2022-05-10] MEDS: LISINOPRIL 5 MG TAB PO SCH (10:09)
--- NOTE | 2022-05-10 10:50 | Progress Note ---
Assessment and Plan Patient is a 52-year-old male with a past medical history of HFrEF, COPD, PE(on Xarelto as an outpatient), cocaine dependence, history of tobacco use who presented to the ED today for complaint of chest pain x2 daysNSTEMI HFrEF (compensated) Cardiomyopathy COPD History of tobacco use Cocaine use H/o PE on Xarelto as outpatient Echo 01/30/2022-EF 35 to 40%. Hypokinesis in the basal inferior septal wall and lateral wall. Mild diastolic dysfunction is present impaired laxation pattern. No pericardial effusion. Right ventricle is mildly dilated. Right ventricle systolic function is mildly reduced. Plan: Patient underwent PCI of RCA yesterday. See cath report for full details Patient to be on DAPT therapy with aspirin, Plavix, and warfarin for anticoagulation x1 month After 1 month stop aspirin and patient to be on Plavix and warfarin No indication for Lovenox bridge therapy at this time as per CTA patient no longer has PE Continue atorvastatin and lisinopril No beta-blockers due to cocaine use and soft BP Stressed the importance of medication compliance, diet compliance, hospital f ollow-up, and cessation of substance abuse. Patient verbalized understanding and agreement Cardiac status otherwise stable for discharge Patient has a scheduled for labs and INR checked on 05/15/2022 at 1:15 PM in our [place] location. Phone #[phone] Patient has a follow-up appointment with Dr. Sheryl Robertson, [facility] community service specialist, on 06/08/2022 at 3:30 PM in our [place] location. Phone #[phone] Patient seen in conjunction with Dr. Robertson who agrees with this plan of care - Patient Problems (1) COPD (chronic obstructive pulmonary disease) Current Visit: No Status: Acute (2) Cardiomyopathy Current Visit: No Status: Acute (3) Cocaine dependence Current Visit: No Status: Acute (4) HFrEF (heart failure with reduced ejection fraction) Current Visit: No Status: Acute (5) NSTEMI (non-ST elevated myocardial infarction) Current Visit: No Status: Acute (6) Coronary artery disease Current Visit: Yes Status: Acute Subjective Date of service: 05/10/22 Principal diagnosis: NSTEMI Interval history: Patient resting in bed in no acute distress. Patient reports being chest pain- free Patient refusing to wear monitor this a.m. however previously sinus 70s to 80s Objective Vital Signs Temp Pulse Resp BP Pulse Ox 05/10/22 08:45 100 05/10/22 07:27 98.1 F 77 18 102/66 93 05/10/22 03:14 98.4 F 77 16 111/71 96 05/09/22 23:51 98.2 F 73 18 106/66 96 05/09/22 22:00 99 05/09/22 20:00 99 05/09/22 19:23 98.8 F 92 H 18 105/66 97 05/09/22 16:00 96 H 05/09/22 15:54 98.2 F 96 H 16 122/69 98 05/09/22 13:00 99 05/09/22 11:56 97.9 F 73 16 124/73 93 05/09/22 11:30 71 22 125/85 95 05/09/22 11:15 84 25 H 131/80 95 05/09/22 11:00 71 16 114/81 94 - Physical Examination General: No Apparent Distress HEENT: Positive: PERRL Neck: Positive: trachea midline Cardiac: Positive: Reg Rate and Rhythm Lungs: Positive: Normal Breath Sounds Neuro: Positive: Grossly Intact Abdomen: Positive: Soft Skin: Negative: Rash, Suspicious Lesions, Ulceration Incision: Cardiac Cath Site (Dressing clean dry and intact with no signs of bleeding or hematoma) Extremities: Present: upper extr. pulses. Absent: edema - Labs and Meds Coagulation 05/10/22 Range/Units 04:23 PT 12.8 (12.2-14.9) Sec. INR 0.87 (0.87-1.13) CBC 05/10/22 Range/Units 04:23 Hgb 15.5 H (11.8-15.2) gm/dl Hct 47.1 H (35.5-45.6) % Plt Count 199 (140-440) K/mm3 Comprehensive Metabolic Panel 05/10/22 Range/Units 04:23 Creatinine 0.7 L (0.8-1.3) mg/dL - Imaging and Cardiology Echo: report reviewed Cardiac cath: pending - Telemetry EKG Rhythm: Sinus Rhythm - EKG Sinus rhythms and dysrhythmias: sinus rhythm Repolarization changes or abnormalities: ST or T wave suggestive of ischemia
--- NOTE | 2022-05-10 11:35 | Electrocardiograph Report ---
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
[2022-05-10 11:52] VITALS: BP 122/77
--- NOTE | 2022-05-10 12:57 | Discharge Summary ---
Providers - Providers Date of Admission: 05/08/22 12:06 Date of discharge: 05/10/22 Attending physician: OLIVIA ORO 05/08/22 Consult to Cardiac Rehabilitation [CONS] Routine Reason For Exam: Phase I 05/08/22 12:06 Consult to Cardiology [CONS] Routine Consulting Provider: KYAW BRISENO Reason For Exam: angina/chf Primary care physician: CHRIS HORNER Hospitalization Condition: Stable Hospital course: --Non-ST elevation [place] : Serial cardiac enzymes, EKG Cardiology evaluated the patient Patient had left heart catheterization status post PCI --Coronary artery disease ;status post PCI of RCA Managed with aspirin, VICKIE inhibitors, nitrates Statins, no beta-macie since patient uses cocaine --CHF of reduced ejection fraction with cardiomyopathy; Input output monitoring,, low-sodium diet, fluid restriction IV diuretics, supportive care --History of COPD well compensated Continue oxygen, nebulizers and supportive care --History of PE/CTA chest negative for PE Patient is being managed with Coumadin Closely monitor INR to therapeutic goal between 2 and 3 --Ongoing tobacco use; Smoking cessation counseling done patient strongly advised nicotine patch Patient verbalized understanding --Recreational drug use cocaine; Strongly advised to quit recreational drug use Patient verbalized understanding Cardiology cleared the patient for discharge and follow-up per schedule Patient is hemodynamically and clinically stable at discharge Patient will follow with primary care physician, head orthopedic team physician per schedule Vital signs noted Special instructions; Patient to be on DAPT therapy with aspirin, Plavix, and warfarin for anticoagulation x1 month After 1 month stop aspirin and patient to be on Plavix and warfarin No indication for Lovenox bridge therapy at this time as per CTA patient no longer has PE Continue atorvastatin and lisinopril No beta-blockers due to cocaine use and soft BP Stressed the importance of medication compliance, diet compliance, hospital follow-up, Smoking cessation counseling, counseling advised to quit recreational drug use Patient is stable at discharge Disposition: 01 HOME / SELF CARE / HOMELESS Final Discharge Diagnosis (Prints w/discharge instructions): Non-ST elevation [place]. Coronary artery disease status post PCI of RCA. CHF of reduced ejection fraction. cardiomyopathy. History of COPD without exacerbation. History of PE/CTA chest negative for PE. Ongoing tobacco use. Recreational drug use cocaine Time spent for discharge: 35 minutes Core Measure Documentation - Palliative Care Palliative Care/ Comfort Measures: Not Applicable - Core Measures Any of the following diagnoses?: acute [place] - Acute [place] Discharge Requirements Aspirin at discharge: Yes VICKIE/ARB for LVSD if EF <40%: Yes Beta macie at discharge: No Reason for no beta macie on DC: Medical contraindication (Patient uses cocaine) Statin for LDL = or >100 mg/dl on DC: Yes Exam - Constitutional Vitals: Temp Pulse Resp BP Pulse Ox 98.0 F 78 18 122/77 80 L 05/10/22 11:49 05/10/22 11:49 05/10/22 11:49 05/10/22 11:49 05/10/22 11:49 General appearance: Present: no acute distress, well-nourished - EENT Eyes: Present: PERRL, EOM intact - Neck Neck: Present: supple, normal ROM - Respiratory Respiratory effort: normal Respiratory: bilateral: diminished, negative: rales, rhonchi, wheezing - Cardiovascular Rhythm: regular Heart Sounds: Present: S1 & S2 - Extremities Extremities: no ischemia, No edema - Abdominal General gastrointestinal: Present: soft, non-tender, non-distended, normal bowel sounds - Integumentary Integumentary: Present: clear, warm - Musculoskeletal Musculoskeletal: strength equal bilaterally, generalized weakness - Psychiatric Psychiatric: appropriate mood/affect, cooperative - Neurologic Neurologic: CNII-XII intact, moves all extremities Plan Activity: advance as tolerated Diet: other (Cardiac diet) Special Instructions: smoking cessation Additional Instructions: Smoking cessation counseling done. Strongly advised to quit recreational drug use. if you have worsening symptoms contact MD or go to the nearest emergency room as needed. Strongly advised to comply with medications, diet, follow-up visits. Advised to get INR checked on 05/15/2022 at 1:15 PM at cardiology [place] location. Phone #[phone]. Follow-up ap pointment with head orthopedic team physician Dr. Sheryl Bryant, [facility] air pollution specialist, on 06/08/2022 at 3:30 PM in our [place] location. Phone #[phone] Follow up with: CHRIS HORNER MD [Primary Care Provider] - 7 Days JOHN BRYANT MD [Staff Physician] - 06/08/22 3:30 pm Forms: Warfarin Discharge Instruction Prescriptions: Aspirin [Aspirin BABY CHEW TAB] 81 mg PO QDAY 30 Days #30 tab.chew Warfarin [Coumadin] 7.5 mg PO DAILY@1700 #30 tablet Nicotine [Habitrol] 14 mg TD DAILY #30 patch AtorvaSTATin [Lipitor] 40 mg PO QHS #30 tab Clopidogrel [Plavix] 75 mg PO QDAY #30 tablet traMADoL [Ultram 50 MG tab] 50 mg PO Q6H PRN #12 tablet PRN Reason: Pain, Moderate (4-6) Lisinopril [Zestril] 5 mg PO DAILY #30
[2022-05-10] MEDS ORDERED: WARFARIN 7.5 MG TAB PO NR (17:00)
== END 2022-05-10 16:05 | disposition home or self-care (01) | DRG 246 ==
LOC: ED 04:18 → 4A 12:06
PROVIDERS: ADMIT Internal Medicine; ATTEND Internal Medicine
PROC: 027034Z Dilation of Coronary Artery, One Artery with Drug-eluting Intraluminal Device, Percutaneous Approach (ICD-10-PCS; principal; 2022-05-09)
PROC: 4A023N7 Measurement of Cardiac Sampling and Pressure, Left Heart, Percutaneous Approach (ICD-10-PCS; 2022-05-09)
PROC: B2111ZZ Fluoroscopy of Multiple Coronary Arteries using Low Osmolar Contrast (ICD-10-PCS; 2022-05-09)
DX: I11.0 Hypertensive heart disease with heart failure (principal); I21.4 Non-ST elevation (NSTEMI) myocardial infarction; I50.23 Acute on chronic systolic (congestive) heart failure; F17.213 Nicotine dependence, cigarettes, with withdrawal; E87.1 Hypo-osmolality and hyponatremia; I42.9 Cardiomyopathy, unspecified; I20.8 Other forms of angina pectoris; J44.9 Chronic obstructive pulmonary disease, unspecified; Z90.49 Acquired absence of other specified parts of digestive tract
CPT/HCPCS: 36415; 71045; 71275; 80048; 80053; 80061; 80307; 82565; 84484; 85014; 85018; 85025; 85027; 85049; 85520; 85610; 85730; 92928; 92978; 93005; 93458; 99285; G0378; J1815; J3490; C1753; C1769; C1874; C1887; C1894; C9600; J1644; J2250; J3010; J7040; Q9967